=== PATIENT | male | born 1940 | race Caucasian/White ===

== ENCOUNTER 2021-09-04 01:46 | Inpatient (IN) | payer OTHER, SELFPAY ==
[2021-09-04] VITALS (19 sets, daily range): BP systolic 115–174; BP diastolic 53–82; PULSE 60–95; RESP 13–19; TEMP 36.1–36.8; O2SAT 94–100; BMI 27.6
--- NOTE | 2021-09-04 | ECHO_ITS ---
Patient Info Name: Rudy Herrera Age: 81 years : 1940 Gender: Male Ht: 73 in Wt: 209 lbs BSA: 2.22 m2 HR: 67 bpm BP: 133 / 60 mmHg Technical Quality: Fair Exam Date: 09/04/2021 1:01 PM Exam Location: [facility] Pulmonary Exam Room: [facility] Patient Status: Outpatient Admit Date: 09/04/2021 Staff Ordering Physician: Amos Mascorro [employer] Chief Inspector: Sandee Escalera RDCS Attending Provider: Mark Reardon MD Referring Physician: Ludwin SINGH; Exam Type: CA echo doppler color flow Study Info Indications - fluid volume status Complete two-dimensional, color flow and Doppler transthoracic echocardiogram is performed. Summary 1. Complete two-dimensional, color flow and Doppler transthoracic echocardiogram is performed. 2. Left ventricular chamber dimension is normal. 3. Left ventricular systolic function is normal, estimated at 65-70%. 4. There is mildly increased left ventricular wall thickness. 5. The left ventricular diastolic function is grade I diastolic dysfunction. 6. Right ventricular chamber dimension is normal. 7. Right ventricular systolic function is normal. Left Ventricle Left ventricular chamber dimension is normal. Left ventricular systolic function is normal, estimated at 65-70%. There is mildly increased left ventricular wall thickness. Left ventricular septal wall motion is normal. The left ventricular diastolic function is grade I diastolic dysfunction. Right Ventricle Right ventricular chamber dimension is normal. Right ventricular systolic function is normal. Left Atria Left atrial chamber dimension is normal. Right Atria Right atrial chamber dimension is normal. Aortic Valve The aortic valve is trileaflet. There is no aortic valve sclerosis. There is no aortic valve stenosis. There is no aortic valve regurgitation. Pulmonic Valve The pulmonic valve is normal. There is no pulmonic valve stenosis. There is no pulmonic regurgitation. Mitral Valve The mitral valve has normal leaflets. There is no mitral valve stenosis. There is no mitral valve regurgitation. Tricuspid Valve The tricuspid valve leaflets are normal. There is no significant tricuspid valve stenosis. There is no tricuspid valve regurgitation. Pericardium/Pleural The pericardium appears normal. There is no pericardial effusion. Aorta The aortic root size at the sinus of Valsalva is normal. The prox ascending aorta size is normal. Left Ventricular Outflow Tract Name Value Normal LVOT 2D LVOT Diameter 2.0 cm LVOT Doppler LVOT Peak Gradient 5 mmHg LVOT Mean Gradient 2 mmHg LVOT VTI 22 cm LVOT VTI/AV VTI Ratio 0.7 LVOT Stroke Volume 70 ml LVOT CO 13.8 l/min LVOT CI 6.2 l/min/m2 Pulmonic Valve Name Value Normal
--- NOTE | ~2021-09-04 | CT_ITS ---
EXAMINATION: CT abdomen pelvis w con DATE: 09/04/2021 04:04 INDICATION: Gastrointestinal bleeding TECHNIQUE: Computed tomography (CT) of the abdomen and pelvis was performed with 100 CC Omnipaque 300 intravenous contrast. Automated exposure control and iterative reconstruction technique were employe d. Exam dose: 1601.81 mGy-cm total exam DLP. COMPARISON: 09/18/2016 obstructive series FINDINGS: The lung bases are clear of infiltrate or consolidation. Heart size is normal. No pericardi al or pleural effusion. Very small lateral segment left hepatic cyst. Several millimeter lower right hepatic cyst. The gallbl adder appears unremarkable. Possible 2.4 mm distal common bile duct calculus versus solitary pancreat ic head calcification. No bile duct or pancreatic duct dilatation. Normal morphology of the adrenal glands. 1.5 cm upper pole right renal cyst. No urinary tract calculus or hydroureteronephrosis. Normal caliber of the abdominal aorta. No intraperitoneal or retroperitoneal or pelvic mass lesion or adenopathy or ascites is noted. The pelvic structures are not optimally evaluated due to extensive streak artifact from bilateral hip replacements. Normal appendix. There is prominent rectosigmoid wall thickening with mild surrounding soft tissue infiltration of the fat, consistent with proctocolitis. No bowel obstruction or intraperitoneal free air. Mild diffuse thickening of the urinary bladder wall. Prominent bladder distention. The prostate is ob scured by the streak artifact from a hip replacements. Bilateral fat-containing inguinal hernias. Very small fat-containing umbilical hernia. Osteopenia. Degenerative changes of the spine including severe degenerative disc disease at L1-2 and L2-3. IMPRESSION: Proximal colitis Possible distal common bile duct 2.4 mm calculus Small hepatic cysts 1.5 cm right renal cyst Bladder wall thickening and bladder distention may indicate bladder outlet obstruction, possibly due to prostate enlargement. The prostate is obscured by streak artifact from bilateral hip replacements. Reviewed, dictated and finalized at [facility]. Reviewed, dictated and finalized at [facility]. IMPRESSION: Proximal colitis Possible distal common bile duct 2.4 mm calculus Small hepatic cysts 1.5 cm right renal cyst Bladder wall thickening and bladder distention may indicate bladder outlet obst ruction, possibly due to prostate enlargement. The prostate is obscured by stre ak artifact from bilateral hip replacements.
--- NOTE | ~2021-09-04 | XR_ITS ---
CORRECTED REPORT WRONG ORDER, TITLE CHANGE 09/07/21 PK EXAMINATION: XR OR CYSTOGRAM DATE: 09/04/2021 20:10 CDT INDICATION: CATHETER PLACEMENT W/ CONTRAST . TECHNIQUE: 2 fluoroscopic images of the pelvis were obtained during catheter placement performed by the surgeon. I was not present in the operating room. Fluoroscopy exposure time was 17.9 seconds. Cumulative dose was 11.36 mGy. COMPARISON: CT abdomen and pelvis, same date FINDINGS: Contrast present within the urinary bladder. There is guidewire access to the urinary bladder with several loops of coiled wire, followed by a likely postprocedure image with a Perez catheter balloon inflated in the bladder lumen, in good position. IMPRESSION: Fluoroscopic documentation of catheter placement. Please refer to the operative note for complete procedural details. . Reviewed, dictated and finalized at [facility]
--- NOTE | ~2021-09-04 | CT_ITS ---
EXAMINATION: CT brain wo con DATE: 09/08/2021 11:02 INDICATION: Hyponatremia TECHNIQUE: Computed tomography (CT) of the head was performed without intravenous contrast. The mA wa s adjusted according to patient size. Iterative reconstruction technique was employed. Exam dose: 90 8.00 mGy-cm total exam DLP. COMPARISON: 09/14/2016 CT brain FINDINGS: 2 sets of examinations are provided but there is unfortunately significant patient motion l imiting both sets. Chronic left insular and posterior left temporoparietal encephalomalacia consistent with infarcts, le ft middle cerebral territory. No intracranial mass lesion or hemorrhage, midline shift or mass effect or subdural or epidural hemat radha is evident. Moderately prominent cerebral and cerebellar volume loss. No carotid siphon internal carotid artery calcifications nonspecific diminished attenuation cerebral white matter, likely due to chronic small vessel ischemic changes No fracture or bone destruction of the cranial vault is evident. 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 Reviewed, dictated and finalized at [facility]. 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
--- NOTE | ~2021-09-04 | US_ITS ---
EXAMINATION:US venous doppler LE BI INDICATION:Bilateral leg swelling TECHNIQUE: Multiple grayscale, color flow and Doppler images of the right and left lower extremity de ep venous systems were obtained and reviewed. COMPARISON:Ultrasound dated 04/17/2008 FINDINGS: The common femoral, superficial femoral and popliteal veins demonstrate normal respiratory variation, augmentation and compressibility. Color flow is also seen within the posterior tibial, pe roneal, greater saphenous and profunda veins. IMPRESSION: 1: No lower extremity deep venous thrombosis. Reviewed, dictated and finalized at [facility].
--- NOTE | ~2021-09-04 | XR_ITS ---
XR chest 1V portable DATE: 09/04/2021 08:36 INDICATION: Hypoxia TECHNIQUE: Portable AP chest on 09/04/2021 at 0834 hours COMPARISON: 09/19/2016 portable AP chest FINDINGS: Chronic mild elevation of right diaphragm. Mild infiltrate or atelectasis at the lung bases . Heart size is likely within normal range considering magnification associated with AP projection. No pleural effusion, pulmonary vascular congestion or pneumothorax is detected. Osteopenia. IMPRESSION: Chronic mild elevation right diaphragm Mild infiltrate or atelectasis at the lung bases Osteopenia Reviewed, dictated and finalized at [facility].
--- NOTE | ~2021-09-04 | XR_ITS ---
EXAMINATION: XR abdomen NG/feed tube insert DATE: 09/07/2021 07:09 INDICATION: Nasogastric tube verification TECHNIQUE: A supine view of the abdomen and lower chest was obtained for evaluation of feeding tube placement. COMPARISON: Chest radiograph dated 09/04/2021 FINDINGS: Nasogastric tube tip in proximal side port in the body of the stomach. Moderate amount of gas scatter ed throughout nondilated loops of bowel throughout the visualized mid to upper abdomen. No frankly di lated bowel to suggest obstruction. Elevation of right hemidiaphragm. Visualized portions of the lung s remain clear. Heart size is normal. IMPRESSION: 1. Nasogastric tube in the stomach. Reviewed, dictated and finalized at [facility].
[2021-09-04] MEDS: ONDANSETRON INJ 4 MG/2 ML VIAL IV PUSH (02:05)
[2021-09-04] MEDS: PANTOPRAZOLE SODIUM IV 40 MG VIAL 80 MG IV PUSH (02:05)
[2021-09-04 02:08] LABS: Basophils Percent Auto 0.2 % (0.2-1.2); Eosinophils Absolute Auto 0.4 K/mm3 (0-0.3); Eosinophils Percent Auto 3.4 % (0-4.4); Hematocrit 38.2 % (42.0-52.0); Hemoglobin 12.7 g/dL (14.0-18.0); Immature Granulocyte Absolute 0.04 K/mm3 (0.00-0.031); Immature Granulocyte Percent A 0.3 % (0-0.5); Lymphocytes Absolute Auto 1.38 K/mm3 (0.9-3.2); Lymphocytes Percent Auto 11.2 % (18.3-44.2); Mean Corpuscular HGB Conc 33.2 g/dl (32-36); Mean Corpuscular Hemoglobin 28.8 pg (26-34); Mean Corpuscular Volume 86.6 fl (80-100); Mean Platelet Volume 8.1 fl (7.4-10.4); Monocytes Absolute Auto 1.1 K/mm3 (0.1-0.6); Monocytes Percent Auto 8.7 % (2.6-8.5); Neutrophils Absolute Auto 9.4 K/mm3 (1.3-6.7); Neutrophils Percent Auto 76.2 % (45.5-73.1); Platelet Count Result 207 k/mm3 (150-375); Red Blood Count 4.41 M/mm3 (4.6-6.20); Red Cell Distribution Width 13.1 % (11.5-14.5); White Blood Count 12.4 K/mm3 (4.5-10.0)
[2021-09-04 02:18] LABS: INR 3.6; Prothrombin Time 35.1 Seconds (11.1-14.7)
[2021-09-04 02:19] LABS: Partial Thromboplastin Time 60.3 SECONDS (22.3-36.8)
--- NOTE | 2021-09-04 02:24 | ED.GIBLEED ---
HPI - GI Bleed General Chief complaint: GI Bleed Stated complaint: GI BLEED Time Seen by Provider: 09/04/21 01:50 History of Present Illness HPI Narrative: 81-year-old male presents here after skilled nursing noticed blood in his stool around 5 PM, they said that they were also blood clots. Patient denies any symptoms whatsoever, no abdominal pain, nausea or vomiting; he has however dementia patient who is only alert and oriented x1 at baseline. He is on Coumadin for blood clots. Related Data Allergies Allergy/AdvReac Type Severity Reaction Status Date / Time PIPERACILLIN SODIUM Allergy Mild RASH Uncoded 09/04/21 01:57 TAZOBACTAM SODIUM Allergy Mild RASH Uncoded 09/04/21 01:57 Review of Systems Review of Systems: CONST: No fever. HEENT: No sore throat C/V: No chest pain RESP: No cough GI: No abdominal pain : No dysuria. M/S: No joint pain. SKIN: No rash. NEURO: [No headache or focal numbness or weakness] PSYCH: [No depression] [facility] Past Medical History Medical History (Updated 09/04/21 @ 07:03 by Cecile Mccurdy MD) COPD (chronic obstructive pulmonary disease) Embolism Social History Social History Alcohol intake: never Exam Narrative: EXAMINATION OF ORGAN SYSTEMS/BODY AREAS: Constitutional: Vital signs per nursing GENERAL:[No acute distress, non-toxic appearing.] HEAD: Normal with no signs of head trauma. EYES: EOMI, conjunctiva normal ENT: Hearing grossly intact LUNGS: Nonlabored breathing. HEART: [Regular rate and rhythm] ABD: [Soft], [nontender to palpation] RECTAL: Bright red bloody mucus from rectum, no tenderness EXT: Normal range of motion SKIN: No pallor NEURO: [Alert and oriented x1, at baseline. No gross focal sensory or strength deficits.] PSYCH: Normal affect Course Vital Signs Vital signs: Vital Signs Temperature 97.6 F 09/04/21 01:46 Pulse Rate 73 09/04/21 01:46 Respiratory Rate 18 09/04/21 01:46 Blood Pressure 140/76 09/04/21 01:46 Pulse Oximetry 100 09/04/21 01:46 Oxygen Delivery Nasal Cannula 09/04/21 01:46 Oxygen Flow Rate 2 09/04/21 01:46 Temperature 97.6 F 09/04/21 01:46 Pulse Rate 66 09/04/21 05:50 Respiratory Rate 14 09/04/21 05:50 Blood Pressure 115/53 L 09/04/21 05:50 Pulse Oximetry 97 09/04/21 04:50 Oxygen Delivery Nasal Cannula 09/04/21 01:46 Oxygen Flow Rate 2 09/04/21 01:46 MDM - GI Bleed MDM Narrative Medical decision making narrative: 81-year-old male presenting with bright red blood per rectum, vital stable, exam does show bright red mucous from rectum without any obvious external hemorrhoids, no rectal tenderness. Concern is for lower GI bleeding possibly internal hemorrhoids versus nuclear bleeding, less likely upper GI bleed without any abdominal pain and stool is bright red and not melanotic. Labs and coags obtained, patient's INR is elevated at 3.6 when therapeutic should be 2-3, otherwise hemoglobin is stable, he is not having large amount of bloody stool. Notable for possible cystitis, UA will be ordered; and possible proctocolitis, he will be started on antibiotics. I do feel he should be admitted for further observation and possible blood transfusion as noted, we did attempt to reach family however no one picked up. I did discuss the case with the hospitalist Dr. Reardon who is amenable to admission. Lab Data Result diagrams: 09/04/21 01:59 09/04/21 02:52 Labs: Lab Results 09/04/21 09/04/21 09/04/21 Range/Units 01:58 01:59 01:59 WBC 12.4 H (4.5-10.0) K/mm3 RBC 4.41 L (4.6-6.20) M/mm3 Hgb 12.7 L (14.0-18.0) g/dL Hct 38.2 L (42.0-52.0) % MCV 86.6 (80-100) fl MCH 28.8 (26-34) pg MCHC 33.2 (32-36) g/dl RDW 13.1 (11.5-14.5) % Plt Count 207 (150-375) k/mm3 MPV 8.1 (7.4-10.4) fl Immature Gran % (Auto) 0.3 (0-0.5) % Neut % (Auto) 76.2 H (45.5-73.1) % Lymph % (Auto) 11.2 L (18.3-44.2) % [place] % (Auto)
[2021-09-04 03:37] LABS: Alanine Aminotransferase 24 U/L (6-50); Albumin Level 3.4 g/dL (3.5-5.1); Alkaline Phosphatase 72 U/L (38-126); Anion Gap 5 mmol/L (8-16); Aspartate Amino Transferase 28 U/L (17-59); Bilirubin,Total 0.4 mg/dL (0.2-1.3); Blood Urea Nitrogen 8 mg/dL (9-20); Calcium 7.7 mg/dL (8.4-10.2); Carbon Dioxide 29 mmol/L (22-30); Chloride 90 mmol/L (98-107); Estimated CRCL calculation 137 ml/min; Estimated Glomerular Filt Rate > 60; Glucose 127 mg/dL (65-110); Magnesium 1.8 mg/dL (1.6-2.3); Potassium 4.2 mmol/L (3.4-5.0); Sodium 124 mmol/L (137-145)
--- NOTE | 2021-09-04 07:23 | PM.IMHP ---
H&P: HPI History of Present Illness Date/Time: 09/04/21 07:23 Chief Complaint: Melena x 1 with clots Narrative: Patient is a 81 year old male with a past medical history of COPD, GERD, A. FIb, schizoaffective disorder, DVTs, BPH, Alzheimer, OCD, Seizures, anemia who presented from [facility] for melena with clots. Patient is a very poor historian and hearing difficulties. He keeps telling me that he wants a Diet Dr. Pickens, they are $0.75, and there is money in the top drawer. Most of the HPI is taken from electronic records. It seems that he had a large BM that was bloody and had clots in it. It seems that the patient is on warfarin for what seems to be a. fib and DVT/PEs. He denies any pain at this time. H/H is stable at 12.7/38.2. INR is slightly elevated at 3.6. He does not know where he is, and he was not able to be reoriented. He did not seem to have any abdominal pain with palpation, and his abdomen was soft and round. Lung sounds were clear. However, he does seem to wear oxygen at home, and was not in his nose at time of exam. He does snore and probably has KARI. He denies any cough at this time. It does appear that his INR was in range on 08/29/21 at 2.24. Lactic acid is also elevated and sodium is low at 124. Unsure of his baseline mental status at time. Complete review of systems was not obtainable due to patient's mental status. Patient is being admitted to the hospitalist service under inpatient status Review of Systems Review of Systems: All systems reviewed & are unremarkable except as noted in HPI and below ROS unobtainable: Yes unobtainable due to medical condition PMFSH Past Medical History Medical History (Updated 09/04/21 @ 14:07 by Titi Kelley MD) Alzheimer disease Anemia Anxiety Atrial fibrillation BPH (benign prostatic hyperplasia) Colitis COPD (chronic obstructive pulmonary disease) COVID-19 DVT (deep venous thrombosis) Embolism GERD (gastroesophageal reflux disease) HTN (hypertension) Major depressive disorder Osteoporosis Pulmonary embolism PVD (peripheral vascular disease) Schizo affective schizophrenia Seizure Family History Family History Other Unknown family medical history Social History Social History (Updated 09/04/21 @ 07:47 by ANDREINA Mathis) Social History: Patient is from [facility]. Stephie Cortez appears to be his POA who is a family member. According to the paperwork from the senior care patient is a DNR. Smoking status: Never smoker Alcohol intake: never Substance use: never Substance use type: does not use Living arrangements: senior care Additional living arrangements comments: [facility] Occupation/Education: retired Gender identity (if verbalized by the patient): Male Sexual Orientation (if Verbalized by the Patient): Straight or Heterosexual Spiritual care concerns: No Agree to blood products: Yes Meds Home Medications and Allergies Home Medications Medication Instructions Recorded Confirmed Type acetaminophen 500 mg tablet 500 mg PO Q6H PRN Fever Or Pain 09/04/21 09/04/21 History aspirin 81 mg tablet,delayed 81 mg PO DAILY 09/04/21 09/04/21 History release betamethasone dipropionate 0.05 % 1 applic topical DAILY 09/04/21 09/04/21 History topical cream cholecalciferol (vitamin D3) 1,250 1,250 mcg PO WEEKLY 09/04/21 09/04/21 History mcg (50,000 unit) capsule digoxin 250 mcg (0.25 mg) tablet 250 mcg PO DAILY 09/04/21 09/04/21 History diphenhydramine HCl 25 mg capsule 25 mg PO Q6H PRN Itching 09/04/21 09/04/21 History (Benadryl) lisinopril 20 mg tablet 20 mg PO DAILY 09/04/21 09/04/21 History melatonin 5 mg tablet 5 mg PO HS PRN Sleep 09/04/21 09/04/21 History metoprolol tartrate 25 mg tablet 12.5 mg PO BID 09/04/21 09/04/21 History multivitamin with minerals 1 tablet PO DAILY
[2021-09-04] MEDS: metroNIDAZOLE 500 MG/ISO 100ML 500 MG/100 ML BAG 100 MG IVPB ×3 (07:25→22:15)
[2021-09-04 07:45] LABS: Hematocrit 38.7 % (42.0-52.0); Hemoglobin 12.7 g/dL (14.0-18.0)
[2021-09-04 07:46] LABS: SARS-CoV-2 RNA PCR Negative
--- NOTE | 2021-09-04 08:15 | ECG_ITS ---
Measurements Intervals [place] Rate: 67 P: 50 [place]: 145 QRS: -51 QRSD: 114 T: 76 QT: 375 QTc: 397 Interpretive Statements SINUS RHYTHM LEFT ANTERIOR FASCICULAR BLOCK BASELINE ARTIFACT- V4-V6 ABNORMAL ECG Electronically Signed On 09-04-2021 18:22:06 CDT by Rome Guaman D.O.
[2021-09-04] MEDS: SODIUM CHLORIDE 0.9% IV 1,000 ML 100 ML IV CONT (08:24)
[2021-09-04 10:11] LABS: Bacteria Urine 4+ /hpf; RBC Urine 51-75 /hpf (0-2); Squamous Epithelial Cell Urine Few /hpf (Few); WBC Clumps Urine Present /HPF; WBC Urine >75 /hpf
[2021-09-04 10:13] LABS: Appearance Urine Cloudy (Clear); Bilirubin Urine Negative (Negative); Color Urine Yellow (Yellow); Glucose Urine UA Negative (Negative); Ketones Urine Negative (Negative); Leukocyte Esterase Ur 2+ LEU/UL (Negative); Nitrate Urine Negative (Negative); Protein Urine Negative (Negative); Urobilinogen Urine 0.2 mg/dL (<2.0)
[2021-09-04 10:14] LABS: Add Urine Microscopic? YES; Blood Urine Trace-Intact (Negative)
[2021-09-04 10:29] LABS: Lactate Dehydrogenase 324 U/L (313-618)
[2021-09-04 10:37] LABS: Transferrin 185 mg/dL (206-381)
[2021-09-04] MEDS: CIPROFLOXACIN 400 MG/D5W 200ML 200 ML 200 MG IVPB ×2 (10:38→20:54)
[2021-09-04 11:00] LABS: Iron 124 ug/dL (49-181)
[2021-09-04 11:07] LABS: Percent Iron Saturation 45 % (20-50)
--- NOTE | 2021-09-04 11:35 | ADMGEN ---
This patient, Rudy Herrera, was admitted to [facility] Surg Room 306-01. Patient/family oriented to hospital policies and general routines including ID bracelet, bed and alarms, visiting hours, pain management, procedures, bathroom and other care routines, personal items, smoking policy, room service/diet, and visiting hours. Information on how to activate the Rapid Response Team has been discussed. Patient/Family are encouraged to report perceived risks to care and to ask questions if they do not understand what they are told or what they should do.
--- NOTE | 2021-09-04 14:02 | WPDGICN ---
Assessment and Plan Assessment and plan (1) GI bleed: Code(s): K92.2 - Gastrointestinal hemorrhage, unspecified Status: Acute Assessment and Plan: will assess with egd and colonoscopy also could have been due to elevated INR (I talked to hospital and will reverse inr so he can have procedures) monitor for more signs of bleeding CT scan also report possible colitis (will assess tomorow) (2) Lactic acidosis: Code(s): E87.2 - Acidosis Status: Acute Assessment and Plan: monitor no abdominal pain (3) Hyponatremia: Code(s): E87.1 - Hypo-osmolality and hyponatremia Status: Acute Assessment and Plan: monitor (4) Chronic anticoagulation: Code(s): Z79.01 - jail (current) use of anticoagulants Status: Acute Assessment and Plan: coumadin on hold and inr will be treated (5) Atrial fibrillation: Code(s): I48.91 - Unspecified atrial fibrillation Status: Acute (6) Alzheimer disease: Code(s): G30.9 - Alzheimer's disease, unspecified; F02.80 - Dementia in other diseases classified elsewhere without behavioral disturbance Status: Acute (7) Anemia: Code(s): D64.9 - Anemia, unspecified Status: Acute Assessment and Plan: hb at 12, monitor (8) Colitis: Code(s): K52.9 - Noninfective gastroenteritis and colitis, unspecified Status: Acute GI Consult Note Consult date/time: 09/04/21 14:02 Reason for consult: rectal bleeding HPI: Rudy Herrera is a 81 year old male with past medical history of COPD, GERD, A. FIb on coumadin, schizoaffective disorder, DVTs, BPH, Alzheimer, Seizures who presented from [facility] with new onset of rectal bleeding. History is obtained from records because his dementia. Apparently staff noted dark stools with clots but unclear to me. Blood work showed H/H at 12.7/38.2.? INR 3.6 (on coumadin).?Lactic acid is also elevated and sodium is low at 124. No more report of bleeding here and he is lying in bed comfortable. I did not find information about previous scopes. CT scan reviewed and showed colitis Review of Systems Review of Systems: All systems reviewed & are unremarkable except as noted in HPI and below ROS unobtainable: Yes unobtainable due to medical condition COUNT INCLUDES THE [facility] Past Medical History Medical History (Updated 09/04/21 @ 14:07 by Titi Kelley MD) Alzheimer disease Anemia Anxiety Atrial fibrillation BPH (benign prostatic hyperplasia) Colitis COPD (chronic obstructive pulmonary disease) COVID-19 DVT (deep venous thrombosis) Embolism GERD (gastroesophageal reflux disease) HTN (hypertension) Major depressive disorder Osteoporosis Pulmonary embolism PVD (peripheral vascular disease) Schizo affective schizophrenia Seizure Family History Family History Other Unknown family medical history Social History Social History (Updated 09/04/21 @ 07:47 by ANDREINA Mathis) Social History: Patient is from [facility]. Stephie Cortez appears to be his POA who is a family member. According to the paperwork from the long term patient is a DNR. Smoking status: Never smoker Alcohol intake: never Substance use: never Substance use type: does not use Living arrangements: long term Additional living arrangements comments: [facility] Occupation/Education: retired Gender identity (if verbalized by the patient): Male Sexual Orientation (if Verbalized by the Patient): Straight or Heterosexual Spiritual care concerns: No Agree to blood products: Yes Meds Home Medications and Allergies Home Medications Medication Instructions Recorded Confirmed Type acetaminophen 500 mg tablet 500 mg PO Q6H PRN Fever Or Pain 09/04/21 09/04/21 History aspirin 81 mg tablet,delayed 81 mg PO DAILY 09/04/21 09/04/21 History release
[2021-09-04] MEDS: DIGOXIN 250 MCG TABLET PO (15:07)
[2021-09-04] MEDS: lisinopriL 20 MG TABLET PO (15:08)
[2021-09-04] MEDS: METOPROLOL TARTRATE 25 MG TABLET PO ×2 (15:09→22:13)
[2021-09-04] MEDS: PRIMIDONE 50 MG TABLET 200 MG PO ×2 (15:09→17:45)
[2021-09-04] MEDS: THERAPEUTIC MULTIVITAMINS/MINERALS TAB (*BKC) 1 TABLET PO (15:09)
[2021-09-04 15:11] LABS: Hematocrit 37.5 % (42.0-52.0); Hemoglobin 12.3 g/dL (14.0-18.0)
[2021-09-04] MEDS: PHYTONADIONE ADULT INJ 10 MG in DEXTROSE 5% IN WATER 50 ML 100 MG IVPB (15:11)
[2021-09-04 15:19] LABS: Sodium 127 mmol/L (137-145)
[2021-09-04] MEDS: BISACODYL 5 MG TABLET EC 20 MG PO (17:45)
[2021-09-04] MEDS: diphenhydrAMINE HCl CAP 25 MG CAPSULE PO (17:47)
--- NOTE | 2021-09-04 19:09 | WPDURCON ---
Assessment and Plan Assessment and plan (1) Urinary retention: Code(s): R33.9 - Retention of urine, unspecified Status: Acute Plan 81M anticoagulated with coumadin admitted for work up of hematochezia and found to be in urinary retention, likely overflow incontinence. Additional Plan I attempted catheter placement at the bedside unsuccessfully. I then attempted to cystoscopically place a wire. The patient was prepped and draped in standard fashion. A flexible cystocope was advanced through the phimosis and the meatus encountered, the cystoscope was placed through the meatus and to the pendulous urethra, however the patient began bucking and screaming. A wire was advanced. I then attempted a 16F [place] over the wire however, the patient did not tolerate and I could not advance it. I then placed a 5F open-ended ureteral cahteter over the wire, clear yellow urine dripped slowly. I replaced the wire and attempted to dilate with the amplatz dilators, however the patient did not tolerate dilation over 8F. The patient is currently anticoagulated with warfarin with INR 3.6, new PT/INR is pending. I have discussed with Dr. Villalobos and we will order 2U FFP to reverse the warfarin immediately for the procedure. I have discussed by telephone with his sister and JENNIFER Denita and we will proceed to the operating room for cystoscopy, urethral dilation, complex catheter placement, possible dorsal slit/circumcision, possible suprapubic cystostomy. She agrees with the plan and requests that I call her with an update afterwards. Papi Curtis MD [facility] Consult Note HPI Date Seen: 09/04/21 Requesting Physician: Mark Reardon MD Primary Care Provider: Zuleika Serrano MD Consult Narrative Narrative: Rudy Herrera is a 81 year old male who I was asked to see by Hospital Medicine for urinary retention, dribbling incontinence in the setting of hyponatremia. The patient is on coumadin with an elevated INR. UA with LE and bacteria noted. Culture pending. Review of Systems Review of Systems: Unable to obtain ROS due to dementia, confusion and the patient is extremely hard of hearing. [facility] Past Medical History Medical History (Updated 09/04/21 @ 19:41 by Papi Curtis MD) Alzheimer disease Anemia Anxiety Atrial fibrillation BPH (benign prostatic hyperplasia) Colitis COPD (chronic obstructive pulmonary disease) COVID-19 DVT (deep venous thrombosis) Embolism GERD (gastroesophageal reflux disease) HTN (hypertension) Major depressive disorder Osteoporosis Pulmonary embolism PVD (peripheral vascular disease) Schizo affective schizophrenia Seizure Family History Family History Other Unknown family medical history Social History Social History (Updated 09/04/21 @ 07:47 by ANDREINA Mathis) Social History: Patient is from [facility]. Stephie Cortez appears to be his POA who is a family member. According to the paperwork from the detention patient is a DNR. Smoking status: Never smoker Alcohol intake: never Substance use: never Substance use type: does not use Living arrangements: detention Additional living arrangements comments: [facility] Occupation/Education: retired Gender identity (if verbalized by the patient): Male Sexual Orientation (if Verbalized by the Patient): Straight or Heterosexual Spiritual care concerns: No Agree to blood products: Yes Meds Home Medications and Allergies Home Medications Medication Instructions Recorded Confirmed Type acetaminophen 500 mg tablet 500 mg PO Q6H PRN Fever Or Pain 09/04/21 09/04/21 History aspirin 81 mg tablet,delayed 81 mg PO DAILY 09/04/21 09/04/21 History release betamethasone dipropionate 0.05 % 1 applic topical DAILY 09/04/21 09/04/21 History topical cream cholecalciferol (vitamin D3) 1,250 1,250 mcg
[2021-09-04 19:27] LABS: Hemoglobin 11.8 g/dL (14.0-18.0)
[2021-09-04 19:38] LABS: INR 1.8
[2021-09-04 19:40] LABS: Sodium 127 mmol/L (137-145)
--- NOTE | 2021-09-04 19:41 | WPDHPUPDATE1 ---
History and Physical Update Update Date/Time: 09/04/21 19:41 History and Physical has been reviewed, including an updated exam of the patient. There are NO changes in the patient's condition. Risks, benefits, and alternatives have been discussed and questions answered. Patient agrees to proceed with procedure.
--- NOTE | 2021-09-04 19:45 | PC.NURSE ---
Patient to OR per bed. Telephone consent obtained from Denita Cortez, patient guardian. Report to PRASAD Ortega.
[2021-09-04] MEDS: LACTATED RINGERS 1,000 ML 30 ML IV CONT (20:00)
--- NOTE | 2021-09-04 20:34 | P.PNAN_ITS ---
Anes - Eval Final PreProcedure Day of Procedure 09/04/21 20:34 Patient weight: overweight Neurological: confused Last oral intake: 4 hours ASA classification: IV Emergent: yes Anesthetic plan: proceed Anesthesia type and monitoring: general and standard monitoring Results Review: All pre-operative results and documents have been reviewed as part of the pre- operative evaluation. Informed Consent: The patient's anesthetic plan and its attendant risks and benefits were discussed with the patient/family/POA. Questions were solicited and answers provided to the satisfaction of the patient/family/POA.
--- NOTE | 2021-09-04 21:03 | SUR.PHASEI ---
2100 1 unit of ffp given in or, patient tolerated procedure well, vital signs stable
--- NOTE | 2021-09-04 21:07 | P.OP_ITS ---
Procedure Note - Detailed Date of Procedure 09/04/21 Pre-op Diagnosis Urethral Stricture Procedure Performed Cystoscopy with urethral dilation Cystogram Complex urethral catheter placement Surgeon Papi Curtis MD Indications 81M admitted for GI bleed found to be in urinary retention with inability to place catheters or dilate urethra at bedside. 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 Appropriate placement of 16F [place] with drainage of urine and contrast, confirmed with fluoroscopy. Description of Procedure Patient was placed on table and anesthesia induced. He was prepped and draped in standard fashion after transfer to dorsal lithotomy. A cystoscope was insinuated through his phimosis and into the meatus. The stricture was noted with the 5F entering through it. The cystoscope was removed, a wire advanced through the 5F and the 5F exchanged for a new one. The bladder was filled with contrast and a cystogram performed. It was consistent with the CT and very large. The wire was replaced and the Amplatz dilators used to dilate to 20F. This was very difficult. A 16F [place] was advanced over the wire into the bladder. 10cc of sterile water placed in the balloon. A cystogram was repeated to confirm placement, catheter drained well and irrigated easily. Estimated Blood Loss 5 Drains Yes (16F [place])
--- NOTE | 2021-09-04 21:31 | SUR.OPER ---
Patient came back to OR receiving FFP - anesthesia continued and documented vitals. Please see anesthesia notes.
--- NOTE | 2021-09-04 21:34 | SUR.PHASEI ---
2124 patient only received 1 of [address] ramirez, 2nd unit of ffp is being returned to blood bank so patient can be credited, was taken to blood bank by dr oliva.
[2021-09-04] MEDS: TAMSULOSIN HCL 0.4 MG CAPSULE PO (22:13)
[2021-09-04] MEDS: PANTOPRAZOLE SODIUM IV 40 MG VIAL IV PUSH (22:13)
[2021-09-04] MEDS: TOLNAFTATE 1% POWDER 45 GM BTL 1 APPLIC TOPICAL (22:14)
--- NOTE | 2021-09-04 22:48 | PC.NURSE ---
Patient transported back from OR via bed to room 306-1 @ 2200. Report taken from Praveen in PACU prior to transport. Patient resting comfortable in bed and all belonging and call light within reach
[2021-09-05] VITALS (13 sets, daily range): BP systolic 135–162; BP diastolic 51–78; PULSE 63–89; RESP 18–22; TEMP 36–36.7; O2SAT 97–100
[2021-09-05 00:42] LABS: Hematocrit 36.8 % (42.0-52.0)
[2021-09-05 00:47] LABS: Sodium 128 mmol/L (137-145)
[2021-09-05] MEDS: metroNIDAZOLE 500 MG/ISO 100ML 500 MG/100 ML BAG 100 MG IVPB ×3 (05:09→22:16)
--- NOTE | 2021-09-05 08:01 | WPDANESPN ---
Anes - Prog Note Post-Op Date/Time: 09/05/21 08:01 Cardiovascular status: normal Respiratory status: normal Airway patency: baseline Mental status: baseline Post-Op hydration status: normal Vital Signs: Last Vital Signs Temp 36.0 C L 09/05/21 04:12 Pulse 68 09/05/21 04:12 Resp 18 09/05/21 04:12 BP 135/51 L 09/05/21 04:12 Pulse Ox 100 09/05/21 04:12 O2 Del Method Nasal Cannula 09/04/21 21:40 O2 Flow Rate 2 09/04/21 21:40 Pain Score (VAS): 3 I/O: Intake & Output 09/04/21 09/05/21 09/05/21 23:59 07:59 15:59 Intake Total 1349 100 Output Total 200 800 Balance 1149 -700 Laboratory Tests 09/05/21 00:36 09/05/21 00:36 09/04/21 09/04/21 09/04/21 01:59 07:41 09:45 Hgb 12.7 L Hct 38.7 L PT INR Sodium Iron TIBC % Saturation Transferrin Lyndsay Transferrin Receptr Ferritin Lactate Dehydrogenase Vitamin B12 Folate TSH (Reflex) Urine Color Yellow Urine Appearance Cloudy H Urine pH 6.0 Ur Specific Nova 1.010 Urine Protein Negative Urine Glucose (UA) Negative Urine Ketones Negative Ur Blood (Man) Trace-intact Urine Nitrate Negative Urine Bilirubin Negative Urine Urobilinogen 0.2 Leukocyte Esterase Rfl 2+ H Urine RBC 51-75 H Urine WBC >75 H Urine WBC Clumps Present H Ur Squamous Epith Cells Few Urine Bacteria 4+ H Blood Type A Negative Antibody Screen Negative 09/04/21 09/04/21 09/04/21 10:02 10:13 10:13 Hgb Hct PT INR Sodium Iron 124 TIBC 277 % Saturation 45 Transferrin 185 L Lyndsay Transferrin Receptr Pending Ferritin 110.00 Lactate Dehydrogenase 324 Vitamin B12 272.0 Folate 7.0 TSH (Reflex) 2.160 Urine Color Urine Appearance Urine pH Ur Specific Nova Urine Protein Urine Glucose (UA) Urine Ketones Ur Blood (Man) Urine Nitrate Urine Bilirubin Urine Urobilinogen Leukocyte Esterase Rfl Urine RBC Urine WBC Urine WBC Clumps Ur Squamous Epith Cells Urine Bacteria Blood Type Antibody Screen 09/04/21 09/04/21 09/04/21 15:01 15:01 19:21 Hgb 12.3 L 11.8 L Hct 37.5 L 36.0 L PT INR Sodium 127 L Iron TIBC % Saturation Transferrin Lyndsay Transferrin Receptr Ferritin Lactate Dehydrogenase Vitamin B12 Folate TSH (Reflex) Urine Color Urine Appearance Urine pH Ur Specific Nova Urine Protein Urine Glucose (UA) Urine Ketones Ur Blood (Man) Urine Nitrate Urine Bilirubin Urine Urobilinogen Leukocyte Esterase Rfl Urine RBC Urine WBC Urine WBC Clumps Ur Squamous Epith Cells Urine Bacteria Blood Type Antibody Screen 09/04/21 09/04/21 09/05/21 19:21 19:21 00:36 Hgb 12.0 L Hct 36.8 L PT 20.0 H D INR 1.8 Sodium 127 L Iron TIBC % Saturation Transferrin Lyndsay Transferrin Receptr Ferritin Lactate Dehydrogenase Vitamin B12 Folate TSH (Reflex) Urine Color Urine Appearance Urine pH Ur Specific Nova Urine Protein Urine Glucose (UA) Urine Ketones Ur Blood (Man) Urine Nitrate Urine Bilirubin Urine Urobilinogen Leukocyte Esterase Rfl Urine RBC Urine WBC Urine WBC Clumps Ur Squamous Epith Cells Urine Bacteria Blood Type Antibody Screen 09/05/21 00:36 Hgb Hct PT INR Sodium 128 L Iron TIBC % Saturation Transferrin Lyndsay Transferrin Receptr Ferritin Lactate Dehydrogenase Vitamin B12 Folate TSH (Reflex) Urine Color Urine Appearance Urine pH Ur Specific Nova Urine Protein Urine Glucose (UA) Urine Ketones Ur Blood (Man) Urine Nitrate Urine Bilirubin Urine Urobilinogen Leukocyte Esterase Rfl Urine RBC Urine WBC Urine WBC Clumps Ur Squamous Epith Cells Urine Bacteria Blo
--- NOTE | 2021-09-05 08:05 | P.PNIM_ITS ---
Progress Note: A&P Assessment and Plan (1) GI bleed: Code(s): K92.2 - Gastrointestinal hemorrhage, unspecified Status: Acute Assessment and Plan: * Seems to be lower GI bleed * CT scan shows intraluminal hemorrhage * Trend H/H Q6H * H/H remains stable 12.2/36.8 * GI consulted thank you for your recommendation * EGD and colonoscopy scheduled for today * related to proctocolitis * Antibiotics continued cipro/flagyl (2) Hemorrhagic proctocolitis: Code(s): K52.9 - Noninfective gastroenteritis and colitis, unspecified Status: Acute Assessment and Plan: * Seen on the CT * Cipro/Flagyl on board * Trend H/H * GI consulted thank you for your help * WBC slightly elevated at * Hold warfarin * Give vitamin K one time * EGD/Colonoscopy scheduled for tomorrow (3) Anemia: Code(s): D64.9 - Anemia, unspecified Status: Acute Assessment and Plan: * Reported to have melena, with clots * Secondary to GI Bleed * H/H stable at this time * Trend H/H Q6H * Anemia labs iron 124, TIBC 277, % saturation 45, transferrin 185, ferritin 110, B12 272, folate 7 * Supplement is not indicated at this time * Probably related to acute blood loss, but could be multifactorial with the report of melena * Transfuse as indicated * Trend labs (4) Hyponatremia: Code(s): E87.1 - Hypo-osmolality and hyponatremia Status: Acute Assessment and Plan: * Na is 128 * IV fluids at 100ml/hr * Trend Na * Adjust therapy as indicated * Increase Na 4-6mmol/L per day * trend sodium Q6H * Consider consulting nephrology if no improvement (5) BPH (benign prostatic hyperplasia): Code(s): N40.0 - Benign prostatic hyperplasia without lower urinary tract symptoms Status: Acute Assessment and Plan: * Continue tamsulosin * Trend urine output * Bladder scan PRN * CT indicates urinary distention * urology consulted for difficult catheter placement * Cystoscopy performed with catheter placement yesterday (6) Alzheimer disease: Code(s): G30.9 - Alzheimer's disease, unspecified; F02.80 - Dementia in other diseases classified elsewhere without behavioral disturbance Status: Acute Assessment and Plan: * Currently patient is oriented to self * [facility] * Pleasantly confused * Could also be exacerbated by hyponatremia (7) Major depressive disorder: Code(s): F32.9 - Major depressive disorder, single episode, unspecified Status: Acute Assessment and Plan: * Stable * Continue home medications at this time (8) HTN (hypertension): Code(s): I10 - Essential (primary) hypertension Status: Acute Assessment and Plan: * Current BP is 135/51 * Continue home metoprolol 25mg PO BID, Lisinopril 20 PO daily * Trend blood pressure * adjust therapy as indicated (9) Atrial fibrillation: Code(s): I48.91 - Unspecified atrial fibrillation Status: Acute Assessment and Plan: * History of a. 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
--- NOTE | 2021-09-05 08:05 | PM.IMPN ---
Progress Note: A&P Assessment and Plan (1) GI bleed: Code(s): K92.2 - Gastrointestinal hemorrhage, unspecified Status: Acute Assessment and Plan: Seems to be lower GI bleed CT scan shows intraluminal hemorrhage Trend H/H Q6H H/H remains stable 12.2/36.8 GI consulted thank you for your recommendation EGD and colonoscopy scheduled for today related to proctocolitis Antibiotics continued cipro/flagyl (2) Hemorrhagic proctocolitis: Code(s): K52.9 - Noninfective gastroenteritis and colitis, unspecified Status: Acute Assessment and Plan: Seen on the CT Cipro/Flagyl on board Trend H/H GI consulted thank you for your help WBC slightly elevated at Hold warfarin Give vitamin K one time EGD/Colonoscopy scheduled for tomorrow (3) Anemia: Code(s): D64.9 - Anemia, unspecified Status: Acute Assessment and Plan: Reported to have melena, with clots Secondary to GI Bleed H/H stable at this time Trend H/H Q6H Anemia labs iron 124, TIBC 277, % saturation 45, transferrin 185, ferritin 110, B12 272, folate 7 Supplement is not indicated at this time Probably related to acute blood loss, but could be multifactorial with the report of melena Transfuse as indicated Trend labs (4) Hyponatremia: Code(s): E87.1 - Hypo-osmolality and hyponatremia Status: Acute Assessment and Plan: Na is 128 IV fluids at 100ml/hr Trend Na Adjust therapy as indicated Increase Na 4-6mmol/L per day trend sodium Q6H Consider consulting nephrology if no improvement (5) BPH (benign prostatic hyperplasia): Code(s): N40.0 - Benign prostatic hyperplasia without lower urinary tract symptoms Status: Acute Assessment and Plan: Continue tamsulosin Trend urine output Bladder scan PRN CT indicates urinary distention urology consulted for difficult catheter placement Cystoscopy performed with catheter placement yesterday (6) Alzheimer disease: Code(s): G30.9 - Alzheimer's disease, unspecified; F02.80 - Dementia in other diseases classified elsewhere without behavioral disturbance Status: Acute Assessment and Plan: Currently patient is oriented to self He thinks that he is at the [facility] Pleasantly confused Could also be exacerbated by hyponatremia (7) Major depressive disorder: Code(s): F32.9 - Major depressive disorder, single episode, unspecified Status: Acute Assessment and Plan: Stable Continue home medications at this time (8) HTN (hypertension): Code(s): I10 - Essential (primary) hypertension Status: Acute Assessment and Plan: Current BP is 135/51 Continue home metoprolol 25mg PO BID, Lisinopril 20 PO daily Trend blood pressure adjust therapy as indicated (9) Atrial fibrillation: Code(s): I48.91 - Unspecified atrial fibrillation Status: Acute Assessment and Plan: History of a. 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
--- NOTE | 2021-09-05 08:15 | WPDGIPROGNO ---
Progress Note: A&P Assessment and Plan (1) GI bleed: Code(s): K92.2 - Gastrointestinal hemorrhage, unspecified Status: Acute Assessment and Plan: difficult to get history from patient, can not tell if had melena wonder if blood in stool could be from proctocolitis (findings of CT scan) but now h/h stable at 12 and RN reports no more bleeding patient could not have bowel prep last night because he was still under anesthesia from recent urological procedure will do egd and colonoscopy on Monday, ok to have soft diet today (2) Anemia: Code(s): D64.9 - Anemia, unspecified Status: Acute Assessment and Plan: h/h stable (3) Urinary retention: Code(s): R33.9 - Retention of urine, unspecified Status: Acute Assessment and Plan: treated by urology (4) Alzheimer disease: Code(s): G30.9 - Alzheimer's disease, unspecified; F02.80 - Dementia in other diseases classified elsewhere without behavioral disturbance Status: Acute Assessment and Plan: he is confused (5) Hemorrhagic proctocolitis: Code(s): K52.9 - Noninfective gastroenteritis and colitis, unspecified Status: Acute (6) Chronic anticoagulation: Code(s): Z79.01 - intermediate (current) use of anticoagulants Status: Acute Subjective Date/time seen: 09/05/21 08:15 Interval history: he developed urinary retention and required urological intervention because 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 RN has not seen any more sign of GIB and hb stable at 12. Patient is awake but still confused. Review of Systems Review of Systems: ROS unobtainable: Yes unobtainable due to mental status Exam Const: General: cooperative, no acute distress, well developed, confusion and tired appearing Nutritional Appearance: well nourished and overweight Orientation/consciousness: oriented to person and confusion Limitations: altered mental status HENMT: Head: normal to inspection Ears: hearing grossly normal bilaterally General nose exam: Normal external nose present Teeth and gingiva: poor dentition Eyes: General: appearance normal, both eyes and all related structures Neck: Neck: normal visual inspection, full ROM, trachea midline and supple Chest: Chest palpation & inspection: normal inspection of the chest Resp: Effort & Inspection: normal respiratory effort and able to speak in complete sentences Auscultation: diminished lung sounds Cardio: Jugular venous distension: no JVD Rate: regular rate Heart sounds: S1 normal heart sound present and S2 normal heart sound present GI: Inspection: normal to inspection GI Palp: Yes Soft to palpation and No Tenderness to palpation present (GI) Auscultation: normal bowel sounds Urinary Catheter: Urinary Catheter: patent and draining Skin: General skin exam: normal color and no rashes or lesions noted Lesions: no lesions Neuro: General: moves all extremities, Normal light touch and pain sensation and confusion Cranial nerves: Yes Equal, round and reactive pupils present and Yes Bilaterally intact EOM present Cognition (Neuro): abnormal cognition Speech: normal speech Extrem: General: normal to inspection, full ROM and capillary refill normal Right lower extremity: edema Details: pitting and 3+ Left lower extremity: edema Details: pitting and 3+ Psych: Appearance: disheveled Speech and movement: Normal speech and movement present and Clear speech present Thought process: Other thought process findings present (happily confused ) Insight: Poor insight present (Psych) Judgement: Poor judgement present (Psych) Other: he is awake and alert but confused Objective Data Vital Signs Vital Signs: Vital Signs - 24 hr 09/04/21 08:27 09/04/21 11:17 09/04/21 15:07 Temperature Pulse Rate 66 66 60 Respiratory Rate 18 16 Blood Pressure 133/60 151/82 H
[2021-09-05] MEDS: CIPROFLOXACIN 400 MG/D5W 200ML 200 ML 200 MG IVPB ×2 (08:22→20:09)
[2021-09-05] MEDS: lisinopriL 20 MG TABLET PO (08:23)
[2021-09-05] MEDS: TOLNAFTATE 1% POWDER 45 GM BTL 1 APPLIC TOPICAL ×2 (08:23→20:17)
[2021-09-05] MEDS: DIGOXIN 250 MCG TABLET PO (08:23)
[2021-09-05] MEDS: SERTRALINE HCL 50 MG TABLET PO (08:23)
[2021-09-05] MEDS: THERAPEUTIC MULTIVITAMINS/MINERALS TAB (*BKC) 1 TABLET PO (08:23)
[2021-09-05] MEDS: PRIMIDONE 50 MG TABLET 200 MG PO ×3 (08:23→16:09)
[2021-09-05] MEDS: PANTOPRAZOLE SODIUM IV 40 MG VIAL IV PUSH ×2 (08:24→20:10)
[2021-09-05 08:35] LABS: Basophils Percent Auto 0.2 % (0.2-1.2); Eosinophils Absolute Auto 0.4 K/mm3 (0-0.3); Hematocrit 38.4 % (42.0-52.0); Hemoglobin 12.2 g/dL (14.0-18.0); Immature Granulocyte Absolute 0.05 K/mm3 (0.00-0.031); Immature Granulocyte Percent A 0.4 % (0-0.5); Lymphocytes Absolute Auto 0.91 K/mm3 (0.9-3.2); Lymphocytes Percent Auto 7.6 % (18.3-44.2); Mean Corpuscular HGB Conc 31.8 g/dl (32-36); Mean Corpuscular Hemoglobin 28.6 pg (26-34); Mean Corpuscular Volume 90.1 fl (80-100); Mean Platelet Volume 8.3 fl (7.4-10.4); Monocytes Absolute Auto 0.9 K/mm3 (0.1-0.6); Monocytes Percent Auto 7.2 % (2.6-8.5); Neutrophils Absolute Auto 9.8 K/mm3 (1.3-6.7); Neutrophils Percent Auto 81.6 % (45.5-73.1); Platelet Count Result 186 k/mm3 (150-375); Red Blood Count 4.26 M/mm3 (4.6-6.20); Red Cell Distribution Width 13.2 % (11.5-14.5)
[2021-09-05 08:44] LABS: Alanine Aminotransferase 27 U/L (6-50); Albumin Level 3.6 g/dL (3.5-5.1); Alkaline Phosphatase 92 U/L (38-126); Anion Gap 5 mmol/L (8-16); Aspartate Amino Transferase 24 U/L (17-59); Bilirubin,Total 0.4 mg/dL (0.2-1.3); Blood Urea Nitrogen 6 mg/dL (9-20); Carbon Dioxide 32 mmol/L (22-30); Chloride 91 mmol/L (98-107); Estimated CRCL calculation 137 ml/min; Estimated Glomerular Filt Rate > 60; Glucose 156 mg/dL (65-110); Potassium 4.1 mmol/L (3.4-5.0); Sodium 128 mmol/L (137-145)
--- NOTE | 2021-09-05 08:48 | PC.NURSE ---
bowel prep continued
[2021-09-05] MEDS: LACTATED RINGERS 1,000 ML 150 ML IV CONT ×2 (08:54→15:11)
[2021-09-05] MEDS: METOPROLOL TARTRATE 25 MG TABLET PO ×2 (08:55→20:10)
[2021-09-05 09:03] LABS: Phenytoin Dilantin 10 ug/mL (10-20)
--- NOTE | 2021-09-05 12:56 | PC.NURSE ---
per charge nurse Luz Diop, EGD/colonstomy scheduled for Monday per Md Bishop
--- NOTE | 2021-09-05 13:49 | WPDUROPN2 ---
Progress Note: A&P Assessment and Plan (1) Urinary retention: Code(s): R33.9 - Retention of urine, unspecified Status: Acute (2) Urethral stricture: Code(s): N35.919 - Unspecified urethral stricture, male, unspecified site Status: Acute Plan 1. Maintain catheter, the patient will likely require chronic indwelling catheter placement as I expect his urethral stricture to recur if catheter is removed. He will require monthly catheter exchanges. He is a very poor surgical candidate and unfortunately optimal treatment for dense strictures is urethroplasty vs. diversion. 2. Agree with antibiotics, taper to C&S. 3. Trend labs and I/Os. Subjective Subjective Date/Time Seen: 09/05/21 13:49 Review of Systems Review of Systems: NAEO, patient denies complaint today. Confused but denies pain. ROS unobtainable: Yes unobtainable due to mental status Exam Narrative: NAD,A&Ox3 RRR eWOB S/NT/ND 16F [place] catheter draining [place]kin urine. Objective Data Vital Signs Vital Signs: Vital Signs - 24 hr 09/04/21 15:07 09/04/21 15:09 09/04/21 20:00 Temperature 98.3 F Pulse Rate 60 60 72 Respiratory Rate 16 Blood Pressure 167/80 H Pulse Oximetry 100 Oxygen Delivery Nasal Cannula Oxygen Flow Rate 2 09/04/21 20:10 09/04/21 21:25 09/04/21 21:40 Temperature 98.3 F 97.5 F L Pulse Rate 72 95 74 Respiratory Rate 16 18 19 Blood Pressure 167/80 H 174/65 H 165/79 H Pulse Oximetry 100 94 100 Oxygen Delivery Nasal Cannula Nasal Cannula Oxygen Flow Rate 2 2 09/04/21 22:13 09/04/21 22:39 09/04/21 23:22 Temperature 96.9 F L 97.0 F L Pulse Rate 72 67 80 Respiratory Rate 16 18 Blood Pressure 150/67 H 131/59 L Pulse Oximetry 99 99 Oxygen Delivery Oxygen Flow Rate 09/05/21 00:00 09/05/21 04:00 09/05/21 04:12 Temperature 96.8 F L Pulse Rate 63 70 68 Respiratory Rate 18 Blood Pressure 135/51 L Pulse Oximetry 100 Oxygen Delivery Oxygen Flow Rate 09/05/21 08:00 09/05/21 08:23 09/05/21 08:00 Temperature Pulse Rate 75 75 75 Respiratory Rate 18 Blood Pressure Pulse Oximetry 100 Oxygen Delivery Nasal Cannula Oxygen Flow Rate 2 09/05/21 08:55 Temperature Pulse Rate 75 Respiratory Rate Blood Pressure Pulse Oximetry Oxygen Delivery Oxygen Flow Rate Intake/Output Intake/Output: Intake & Output 09/02/21 09/03/21 09/04/21 09/05/21 23:59 23:59 23:59 23:59 Intake Total 1849 780 Output Total 200 800 Balance 1649 -20 Meds/Results Medications: Active Medications Generic Name Dose Route Start Last Admin Trade Name Freq PRN Reason Stop Dose Admin Acetaminophen 500 mg 09/04/21 08:35 Acetaminophen 500 Mg Tablet PO Q6H PRN Fever Or Pain Digoxin 250 mcg 09/04/21 09:00 09/05/21 08:23 Digoxin 250 Mcg Tablet PO 250 mcg DAILY SIGRID Administration Diphenhydramine HCl 25 mg 09/04/21 08:35 09/04/21 17:47 Diphenhydramine Hcl Cap 25 Mg Capsule PO 25 mg TID PRN Administration Itching Ergocalciferol 50,000 unit 09/07/21 09:00 Ergocalciferol 50,000 Unit Capsule PO Tu@0900 SIGRID Fentanyl Citrate 25 mcg 09/04/21 20:30 Fentanyl Citrate Inj (*Crx) 100 Mcg/2 Ml Vial IV PUSH Q2M PRN Pain Ciprofloxacin/Dextrose 200 mls @ 200 mls/hr 09/04/21 21:00 09/05/21 09:22 Cipro 400 Mg/D5w 200 Ml IVPB Infused Q12H SIGRID Infusion Metronidazole 500 mg in 100 mls @ 100 mls/hr 09/04/21 14:00 09/05/21 13:16 Flagyl 500 Mg/Iso Soln 100 Ml IVPB 100 mls/hr Q8H SIGRID Administration Ceftriaxone Sodium/Dextrose 1 gm in 50 mls @ 100 mls/hr 09/04/21 16:00 09/04/21 17:03 Rocephin 1 Gm/D5w 50 Ml IVPB Infused Q24H SIGRID Infusion Lactated Ringer's 1,000 mls @ 30 mls/hr 09/04/21 20:30 09/04/21 22:11 Lr - Lactated Ringers Iv IV CONT Not Given .Q24H SIGRID Lactated Ringer's 1,000 mls @ 30 mls/hr 09/04/21 20:35 09/04/21 21:52 Lr - Lactated Ringers Iv IV
--- NOTE | 2021-09-05 16:15 | PC.NURSE ---
Petr from [facility] called facility updated.
--- NOTE | 2021-09-05 18:05 | PC.NURSE ---
all med passed by Claudia Breeding this shift.
--- NOTE | 2021-09-05 18:34 | PC.NURSE ---
porter clamped to recollect UA, NF was growning in prior sample
--- NOTE | 2021-09-05 18:50 | PC.NURSE ---
recollected UA resent to lab for analysis
[2021-09-05 18:54] LABS: Appearance Urine Clear (Clear); Bilirubin Urine Negative (Negative); Blood Urine 2+ (Negative); Color Urine Yellow (Yellow); Glucose Urine UA Trace mg/dL (Negative); Ketones Urine Negative (Negative); Leukocyte Esterase Ur 2+ LEU/UL (Negative); Nitrate Urine Negative (Negative); Protein Urine 1+ mg/dL (Negative); Specific Grav Ur 1.025 (1.001-1.035); Urobilinogen Urine 0.2 mg/dL (<2.0)
[2021-09-05 19:04] LABS: Bacteria Urine Trace /hpf; Mucus Urine Rare /lpf; RBC Urine 21-50 /hpf (0-2); Squamous Epithelial Cell Urine Rare /hpf (Few); WBC Urine 31-50 /hpf
[2021-09-05 19:05] LABS: Add Urine Microscopic? YES
[2021-09-05] MEDS: TAMSULOSIN HCL 0.4 MG CAPSULE PO (20:10)
[2021-09-06] VITALS (12 sets, daily range): BP systolic 120–147; BP diastolic 62–74; PULSE 67–88; RESP 16–20; TEMP 36.5–36.9; O2SAT 96–98
[2021-09-06] MEDS: metroNIDAZOLE 500 MG/ISO 100ML 500 MG/100 ML BAG 100 MG IVPB ×3 (05:15→21:19)
[2021-09-06 07:22] LABS: Basophils Percent Auto 0.2 % (0.2-1.2); Eosinophils Absolute Auto 0.4 K/mm3 (0-0.3); Eosinophils Percent Auto 4.5 % (0-4.4); Hematocrit 32.9 % (42.0-52.0); Immature Granulocyte Absolute 0.04 K/mm3 (0.00-0.031); Immature Granulocyte Percent A 0.4 % (0-0.5); Lymphocytes Percent Auto 10.2 % (18.3-44.2); Mean Corpuscular HGB Conc 33.4 g/dl (32-36); Mean Corpuscular Hemoglobin 29.1 pg (26-34); Mean Platelet Volume 8.3 fl (7.4-10.4); Monocytes Absolute Auto 0.9 K/mm3 (0.1-0.6); Monocytes Percent Auto 9.2 % (2.6-8.5); Neutrophils Absolute Auto 7.4 K/mm3 (1.3-6.7); Neutrophils Percent Auto 75.5 % (45.5-73.1); Platelet Count Result 173 k/mm3 (150-375); Red Blood Count 3.78 M/mm3 (4.6-6.20); Red Cell Distribution Width 12.8 % (11.5-14.5); White Blood Count 9.8 K/mm3 (4.5-10.0)
[2021-09-06 07:30] LABS: Alanine Aminotransferase 21 U/L (6-50); Albumin Level 3.3 g/dL (3.5-5.1); Alkaline Phosphatase 87 U/L (38-126); Anion Gap 0 mmol/L (8-16); Aspartate Amino Transferase 18 U/L (17-59); Bilirubin,Total 0.3 mg/dL (0.2-1.3); Blood Urea Nitrogen 3 mg/dL (9-20); Calcium 7.8 mg/dL (8.4-10.2); Carbon Dioxide 37 mmol/L (22-30); Chloride 88 mmol/L (98-107); Estimated CRCL calculation 137 ml/min; Estimated Glomerular Filt Rate > 60; Glucose 134 mg/dL (65-110); Potassium 3.7 mmol/L (3.4-5.0); Sodium 125 mmol/L (137-145)
[2021-09-06 07:51] LABS: INR 1.1
[2021-09-06 07:52] LABS: Partial Thromboplastin Time 29.3 SECONDS (22.3-36.8)
[2021-09-06 07:57] LABS: Magnesium 1.5 mg/dL (1.6-2.3)
[2021-09-06 08:06] LABS: NT Pro B Type Natriuretic Pept 227 pg/mL (5-100)
[2021-09-06] MEDS: PRIMIDONE 50 MG TABLET 200 MG PO ×3 (08:13→16:17)
[2021-09-06] MEDS: PANTOPRAZOLE SODIUM IV 40 MG VIAL IV PUSH ×2 (08:13→21:18)
[2021-09-06] MEDS: SERTRALINE HCL 25 MG TABLET PO (08:13)
[2021-09-06] MEDS: METOPROLOL TARTRATE 25 MG TABLET PO ×2 (08:14→21:18)
[2021-09-06] MEDS: THERAPEUTIC MULTIVITAMINS/MINERALS TAB (*BKC) 1 TABLET PO (08:14)
[2021-09-06] MEDS: SERTRALINE HCL 50 MG TABLET PO (08:14)
[2021-09-06] MEDS: TOLNAFTATE 1% POWDER 45 GM BTL 1 APPLIC TOPICAL ×2 (08:15→21:23)
--- NOTE | 2021-09-06 08:30 | P.PNIM_ITS ---
Progress Note: A&P Assessment and Plan (1) GI bleed: Code(s): K92.2 - Gastrointestinal hemorrhage, unspecified Status: Acute Assessment and Plan: * Seems to be lower GI bleed * CT scan shows intraluminal hemorrhage * H/H remains stable at 11.0/32.9 * GI consulted thank you for your recommendation * EGD and colonoscopy moved to Monday * related to proctocolitis * Antibiotics continued cipro/flagyl (2) Hemorrhagic proctocolitis: Code(s): K52.9 - Noninfective gastroenteritis and colitis, unspecified Status: Acute Assessment and Plan: * Seen on the CT * Cipro/Flagyl on board * Trend H/H * GI consulted thank you for your help * WBC slightly elevated at * Hold warfarin * Give vitamin K one time * EGD/Colonoscopy scheduled for Monday (3) Anemia: Code(s): D64.9 - Anemia, unspecified Status: Acute Assessment and Plan: * Reported to have melena, with clots * Secondary to GI Bleed * H/H stable at this time * Anemia labs iron 124, TIBC 277, % saturation 45, transferrin 185, ferritin 110, B12 272, folate 7 * Supplement is not indicated at this time * Probably related to acute blood loss, but could be multifactorial with the report of melena * Transfuse as indicated * Trend labs (4) Hyponatremia: Code(s): E87.1 - Hypo-osmolality and hyponatremia Status: Acute Assessment and Plan: * Na is 125, trending down * IV fluids at 100ml/hr * could potentially be from fluid overload * Will get urine studies * Trend Na * Adjust therapy as indicated * Increase Na 4-6mmol/L per day * Consider consulting nephrology if no improvement (5) BPH (benign prostatic hyperplasia): Code(s): N40.0 - Benign prostatic hyperplasia without lower urinary tract symptoms Status: Acute Assessment and Plan: * Continue tamsulosin * Trend urine output * CT indicates urinary distention * urology consulted for difficult catheter placement * Cystoscopy performed with catheter placement 09/04/21 (6) Alzheimer disease: Code(s): G30.9 - Alzheimer's disease, unspecified; F02.80 - Dementia in other diseases classified elsewhere without behavioral disturbance Status: Acute Assessment and Plan: * Currently patient is oriented to self * He thinks that he is at the group home * Pleasantly confused * Could also be exacerbated by hyponatremia (7) Major depressive disorder: Code(s): F32.9 - Major depressive disorder, single episode, unspecified Status: Acute Assessment and Plan: * Stable * Continue home medications at this time (8) HTN (hypertension): Code(s): I10 - Essential (primary) hypertension Status: Acute Assessment and Plan: * Current BP is 130/62 * Continue home metoprolol 25mg PO BID, Lisinopril 20 PO daily * Trend blood pressure * adjust therapy as indicated (9) Atrial fibrillation: Code(s): I48.91 - Unspecified atrial fibrillation Status: Acute Assessment and Plan: * History of a. fib * Obtain EKG * Continue home digoxin * Heart rate appears controlled * Trend heart rate * Telemonitor (10) Chronic anticoagulation: Code(s): Z79.01 - skilled nursing (current) use of anticoagulants
--- NOTE | 2021-09-06 08:30 | PM.IMPN ---
Progress Note: A&P Assessment and Plan (1) GI bleed: Code(s): K92.2 - Gastrointestinal hemorrhage, unspecified Status: Acute Assessment and Plan: Seems to be lower GI bleed CT scan shows intraluminal hemorrhage H/H remains stable at 11.0/32.9 GI consulted thank you for your recommendation EGD and colonoscopy moved to Monday related to proctocolitis Antibiotics continued cipro/flagyl (2) Hemorrhagic proctocolitis: Code(s): K52.9 - Noninfective gastroenteritis and colitis, unspecified Status: Acute Assessment and Plan: Seen on the CT Cipro/Flagyl on board Trend H/H GI consulted thank you for your help WBC slightly elevated at Hold warfarin Give vitamin K one time EGD/Colonoscopy scheduled for Monday (3) Anemia: Code(s): D64.9 - Anemia, unspecified Status: Acute Assessment and Plan: Reported to have melena, with clots Secondary to GI Bleed H/H stable at this time Anemia labs iron 124, TIBC 277, % saturation 45, transferrin 185, ferritin 110, B12 272, folate 7 Supplement is not indicated at this time Probably related to acute blood loss, but could be multifactorial with the report of melena Transfuse as indicated Trend labs (4) Hyponatremia: Code(s): E87.1 - Hypo-osmolality and hyponatremia Status: Acute Assessment and Plan: Na is 125, trending down IV fluids at 100ml/hr could potentially be from fluid overload Will get urine studies Trend Na Adjust therapy as indicated Increase Na 4-6mmol/L per day Consider consulting nephrology if no improvement (5) BPH (benign prostatic hyperplasia): Code(s): N40.0 - Benign prostatic hyperplasia without lower urinary tract symptoms Status: Acute Assessment and Plan: Continue tamsulosin Trend urine output CT indicates urinary distention urology consulted for difficult catheter placement Cystoscopy performed with catheter placement 09/04/21 (6) Alzheimer disease: Code(s): G30.9 - Alzheimer's disease, unspecified; F02.80 - Dementia in other diseases classified elsewhere without behavioral disturbance Status: Acute Assessment and Plan: Currently patient is oriented to self He thinks that he is at the intermediate Pleasantly confused Could also be exacerbated by hyponatremia (7) Major depressive disorder: Code(s): F32.9 - Major depressive disorder, single episode, unspecified Status: Acute Assessment and Plan: Stable Continue home medications at this time (8) HTN (hypertension): Code(s): I10 - Essential (primary) hypertension Status: Acute Assessment and Plan: Current BP is 130/62 Continue home metoprolol 25mg PO BID, Lisinopril 20 PO daily Trend blood pressure adjust therapy as indicated (9) Atrial fibrillation: Code(s): I48.91 - Unspecified atrial fibrillation Status: Acute Assessment and Plan: History of a. fib Obtain EKG Continue home digoxin Heart rate appears controlled Trend heart rate Telemonitor (10) Chronic anticoagulation: Code(s): Z79.01 - half-way (current) use of anticoagulants Status: Acute Assessment and Plan: Warfarin 5mg Daily for Afib and DVT/PEs Hold for now since he has a GI bleed INR down to 1.1 Restart when further recommended by GI Give vitamin k for Procedure tomorrow EGD/Colonoscopy Monday Trend PT/INR/PTT (11) Seizure: Code(s): R56.9 - Unspecified convulsions Status: Acute Assessment and Plan: Continue Phenytoin 6ml PO TID, and BID on Sundays Phenytoin 10, within the normal range Seems to be stable, and no reports of events recently (12) Urethral stricture: Code(s): N35.919 - Unspecified urethral stricture, male, unspecified site
--- NOTE | 2021-09-06 08:38 | WPDUROPN2 ---
Progress Note: A&P Assessment and Plan (1) Urinary retention: Code(s): R33.9 - Retention of urine, unspecified Status: Acute (2) Urethral stricture: Code(s): N35.919 - Unspecified urethral stricture, male, unspecified site Status: Acute Plan 1. Maintain catheter, the patient will likely require chronic indwelling catheter placement as I expect his urethral stricture to recur if catheter is removed. He will require monthly catheter exchanges. He is a very poor surgical candidate and unfortunately optimal treatment for dense strictures is urethroplasty vs. diversion. 2. Agree with antibiotics, taper to C&S, culture from OR is pending. 3. Trend labs and I/Os. Remaining care per primary service. Subjective Subjective Date/Time Seen: 09/06/21 08:38 NAEO, labs stable. Patient confused, oriented to self and date. Exam Narrative: NAD, appears comfortable, oriented to person and date. eWOB Warm, dry, perfused extremities S/NT/ND [place] catheter draining, Urine yellow urine (less elkin than yesterday). Objective Data Vital Signs Vital Signs: Vital Signs - 24 hr 09/05/21 08:55 09/05/21 12:00 09/05/21 15:17 Temperature 97.6 F Pulse Rate 75 89 84 Respiratory Rate 22 H Blood Pressure 149/78 H Pulse Oximetry 97 Oxygen Delivery 09/05/21 16:00 09/05/21 17:22 09/05/21 20:10 Temperature Pulse Rate 68 86 Respiratory Rate Blood Pressure Pulse Oximetry 97 Oxygen Delivery Room Air 09/05/21 21:58 09/05/21 20:00 09/06/21 00:00 Temperature 98.1 F Pulse Rate 81 80 78 Respiratory Rate 20 Blood Pressure 162/70 H Pulse Oximetry 99 Oxygen Delivery 09/06/21 04:00 09/06/21 05:54 09/06/21 08:00 Temperature 97.7 F Pulse Rate 78 75 75 Respiratory Rate 20 20 Blood Pressure 130/62 Pulse Oximetry 98 98 Oxygen Delivery Room Air 09/06/21 08:14 Temperature Pulse Rate 75 Respiratory Rate Blood Pressure Pulse Oximetry Oxygen Delivery Intake/Output Intake/Output: Intake & Output 09/03/21 09/04/21 09/05/21 09/06/21 23:59 23:59 23:59 23:59 Intake Total 1849 2470 600 Output Total 200 1250 600 Balance 1649 1220 0 Meds/Results Medications: Active Medications Generic Name Dose Route Start Last Admin Trade Name Freq PRN Reason Stop Dose Admin Acetaminophen 500 mg 09/04/21 08:35 Acetaminophen 500 Mg Tablet PO Q6H PRN Fever Or Pain Digoxin 250 mcg 09/04/21 09:00 09/05/21 08:23 Digoxin 250 Mcg Tablet PO 250 mcg DAILY SIGRID Administration Diphenhydramine HCl 25 mg 09/04/21 08:35 09/04/21 17:47 Diphenhydramine Hcl Cap 25 Mg Capsule PO 25 mg TID PRN Administration Itching Ergocalciferol 50,000 unit 09/07/21 09:00 Ergocalciferol 50,000 Unit Capsule PO Tu@0900 SIGRID Fentanyl Citrate 25 mcg 09/04/21 20:30 Fentanyl Citrate Inj (*Crx) 100 Mcg/2 Ml Vial IV PUSH Q2M PRN Pain Metronidazole 500 mg in 100 mls @ 100 mls/hr 09/04/21 14:00 09/06/21 06:15 Flagyl 500 Mg/Iso Soln 100 Ml IVPB Infused Q8H SIGRID Infusion Ceftriaxone Sodium/Dextrose 1 gm in 50 mls @ 100 mls/hr 09/04/21 16:00 09/05/21 15:42 Rocephin 1 Gm/D5w 50 Ml IVPB Infused Q24H SIGRID Infusion Lisinopril 20 mg 09/04/21 09:00 09/05/21 08:23 Lisinopril 20 Mg Tablet PO 20 mg DAILY SIGRID Administration Melatonin 5 mg 09/04/21 08:35 Melatonin 5 Mg Tablet PO HS PRN Sleep Metoprolol Tartrate 25 mg 09/04/21 09:00 09/06/21 08:14 Metoprolol Tartrate 25 Mg Tablet PO 25 mg Q12HR SIGRID Administration Multivitamins/Calcium 1 tablet 09/04/21 09:00 09/06/21 08:14 Therapeutic Multivitamins/Minerals Tab (*Bkc) PO 1 tablet DAILY SIGRID Administration Ondansetron HCl 4 mg 09/04/21 08:26 Ondansetron Inj 4 Mg/2 Ml Vial IV PUSH Q6H PRN Nausea And Vomiting Ondansetron HCl 4 mg 09/04/21 20:30 Ondansetron Inj 4 Mg/2 Ml Vial IV PUSH ONCE PRN
[2021-09-06] MEDS: DIGOXIN 250 MCG TABLET PO (08:39)
[2021-09-06] MEDS: lisinopriL 20 MG TABLET PO (08:39)
[2021-09-06] MEDS: MAGNESIUM SULF 2 GM/WATER 50ML 2 GM/50 ML BAG IVPB (10:13)
[2021-09-06] MEDS: SODIUM CHLORIDE 0.9% IV 1,000 ML 100 ML IV CONT ×2 (10:17→21:20)
--- NOTE | 2021-09-06 10:42 | PC.NURSE ---
urine samples collected and sent to lab for analysis.
--- NOTE | 2021-09-06 10:45 | PC.NURSE ---
Dario MASSEY called for bowel prep order, pt scheduled for EGD and colonoscopy tomorrow.
[2021-09-06 10:46] LABS: Creatinine Urine 88.6 mg/dL
[2021-09-06 10:47] LABS: Sodium Urine Random 62 meq/L
[2021-09-06 10:53] LABS: Urea Random Urine 316 MG/DL
--- NOTE | 2021-09-06 11:17 | WPDGIPROGNO ---
Progress Note: A&P Assessment and Plan (1) GI bleed: Code(s): K92.2 - Gastrointestinal hemorrhage, unspecified Status: Acute Assessment and Plan: egd and colonoscopy tomorrow, probably rectal bleeding from proctitis but could not get good history because confusion more recommendations after scope (2) Anemia: Code(s): D64.9 - Anemia, unspecified Status: Acute Assessment and Plan: h/h stable (3) Urinary retention: Code(s): R33.9 - Retention of urine, unspecified Status: Acute Assessment and Plan: treated by urology (4) Alzheimer disease: Code(s): G30.9 - Alzheimer's disease, unspecified; F02.80 - Dementia in other diseases classified elsewhere without behavioral disturbance Status: Acute Assessment and Plan: he is confused (5) Hemorrhagic proctocolitis: Code(s): K52.9 - Noninfective gastroenteritis and colitis, unspecified Status: Acute (6) Chronic anticoagulation: Code(s): Z79.01 - intermediate accountant (current) use of anticoagulants Status: Acute Subjective Date/time seen: 09/06/21 11:17 Interval history: no changes Review of Systems Review of Systems: ROS unobtainable: Yes unobtainable due to mental status Exam Const: General: cooperative, no acute distress, well developed, confusion and tired appearing Nutritional Appearance: well nourished and overweight Orientation/consciousness: oriented to person and confusion HENMT: Head: normal to inspection Ears: hearing grossly normal bilaterally General nose exam: Normal external nose present Teeth and gingiva: poor dentition Eyes: General: appearance normal, both eyes and all related structures Neck: Neck: normal visual inspection and supple Chest: Chest palpation & inspection: normal inspection of the chest Resp: Effort & Inspection: normal respiratory effort Auscultation: diminished lung sounds Cardio: Jugular venous distension: no JVD Rate: regular rate Heart sounds: S1 normal heart sound present and S2 normal heart sound present GI: Inspection: normal to inspection GI Palp: Yes Soft to palpation and No Tenderness to palpation present (GI) Auscultation: normal bowel sounds Urinary Catheter: Urinary Catheter: patent and draining Skin: General skin exam: normal color and no rashes or lesions noted Lesions: no lesions Neuro: General: moves all extremities, Normal light touch and pain sensation and confusion Cranial nerves: Yes Equal, round and reactive pupils present Cognition (Neuro): abnormal cognition Speech: normal speech Extrem: General: normal to inspection Psych: Appearance: disheveled Speech and movement: Normal speech and movement present and Clear speech present Thought process: Other thought process findings present (happily confused ) Insight: Poor insight present (Psych) Judgement: Poor judgement present (Psych) Other: he is awake and alert but confused Objective Data Vital Signs Vital Signs: Vital Signs - 24 hr 09/05/21 12:00 09/05/21 15:17 09/05/21 16:00 Temperature 97.6 F Pulse Rate 89 84 68 Respiratory Rate 22 H Blood Pressure 149/78 H Pulse Oximetry 97 Oxygen Delivery 09/05/21 17:22 09/05/21 20:10 09/05/21 21:58 Temperature 98.1 F Pulse Rate 86 81 Respiratory Rate 20 Blood Pressure 162/70 H Pulse Oximetry 97 99 Oxygen Delivery Room Air 09/05/21 20:00 09/06/21 00:00 09/06/21 04:00 Temperature Pulse Rate 80 78 78 Respiratory Rate Blood Pressure Pulse Oximetry Oxygen Delivery 09/06/21 05:54 09/06/21 08:00 09/06/21 08:14 Temperature 97.7 F Pulse Rate 75 75 75 Respiratory Rate 20 20 Blood Pressure 130/62 Pulse Oximetry 98 98 Oxygen Delivery Room Air 09/06/21 08:39 Temperature Pulse Rate 75 Respiratory Rate Blood Pressure Pulse Oximetry Oxygen Delivery Intake/Output Intake/Output: Intake & Output 09/03/21 09/04/21 09/05/21 09/06/21
--- NOTE | 2021-09-06 14:55 | PC.NURSE ---
consent signed on 09/04/21 for edg and colonoscopy
[2021-09-06] MEDS: polyethylene glycoL 3350 238 GM BOTTLE PO (16:16)
[2021-09-06] MEDS: BISACODYL 5 MG TABLET EC 20 MG PO (16:16)
--- NOTE | 2021-09-06 16:34 | PC.NURSE ---
pt on clear liquids for dinner, will be NPO at midnight for egd and colonoscopy tomorrow
[2021-09-06] MEDS: TAMSULOSIN HCL 0.4 MG CAPSULE PO (21:18)
[2021-09-07] VITALS (15 sets, daily range): BP systolic 123–177; BP diastolic 66–91; PULSE 65–99; RESP 12–26; TEMP 36.2–37.6; O2SAT 91–100
[2021-09-07] MEDS: MAGNESIUM CITRATE 300 ML BTL PO (03:14)
[2021-09-07 04:05] LABS: Glucose Point of Care 135 mg/dl (65-105)
--- NOTE | 2021-09-07 07:30 | PM.IMPN ---
Progress Note: A&P Assessment and Plan (1) GI bleed: Code(s): K92.2 - Gastrointestinal hemorrhage, unspecified Status: Acute Assessment and Plan: Seems to be lower GI bleed CT scan shows intraluminal hemorrhage H/H remains stable at 11.1/34.5, has decreased a little bit, but is probably from the fluids GI consulted thank you for your recommendation EGD and colonoscopy moved to Monday related to proctocolitis Antibiotics continued cipro/flagyl (2) Hemorrhagic proctocolitis: Code(s): K52.9 - Noninfective gastroenteritis and colitis, unspecified Status: Acute Assessment and Plan: Seen on the CT Cipro/Flagyl on board Trend H/H GI consulted thank you for your help WBC better with WBC at 10.1 Hold warfarin Give vitamin K one time EGD/Colonoscopy scheduled for Monday (3) Anemia: Code(s): D64.9 - Anemia, unspecified Status: Acute Assessment and Plan: Reported to have melena, with clots Secondary to GI Bleed H/H stable at this time Anemia labs iron 124, TIBC 277, % saturation 45, transferrin 185, ferritin 110, B12 272, folate 7 Supplement is not indicated at this time Probably related to acute blood loss, but could be multifactorial with the report of melena Transfuse as indicated Trend labs (4) Hyponatremia: Code(s): E87.1 - Hypo-osmolality and hyponatremia Status: Acute Assessment and Plan: Na is 127, went up with fluids IV fluids at 100ml/hr could potentially be from fluid overload Urine studies show Na of 62, Urea 316, creatinine 88.6 FENa score 0.2% and seems to be pre-renal, continue IV fluids Trend Na Adjust therapy as indicated Increase Na 4-6mmol/L per day Nephro consult for further recommendations (5) BPH (benign prostatic hyperplasia): Code(s): N40.0 - Benign prostatic hyperplasia without lower urinary tract symptoms Status: Acute Assessment and Plan: Continue tamsulosin Trend urine output CT indicates urinary distention urology consulted for difficult catheter placement Cystoscopy performed with catheter placement 09/04/21 (6) Alzheimer disease: Code(s): G30.9 - Alzheimer's disease, unspecified; F02.80 - Dementia in other diseases classified elsewhere without behavioral disturbance Status: Acute Assessment and Plan: Currently patient is oriented to self He thinks that he is at the half-way Pleasantly confused Could also be exacerbated by hyponatremia Seems to be close to his baseline (7) Major depressive disorder: Code(s): F32.9 - Major depressive disorder, single episode, unspecified Status: Acute Assessment and Plan: Stable Continue home medications at this time (8) HTN (hypertension): Code(s): I10 - Essential (primary) hypertension Status: Acute Assessment and Plan: Current BP is 123/67 Continue home metoprolol 25mg PO BID, Lisinopril 20 PO daily Trend blood pressure adjust therapy as indicated (9) Atrial fibrillation: Code(s): I48.91 - Unspecified atrial fibrillation Status: Acute Assessment and Plan: History of a. fib Obtain EKG Continue home digoxin Heart rate appears controlled Trend heart rate Telemonitor (10) Chronic anticoagulation: Code(s): Z79.01 - rn long term care (current) use of anticoagulants Status: Acute Assessment and Plan: Warfarin 5mg Daily for Afib and DVT/PEs Hold for now since he has a GI bleed INR down to 1.1 Restart when further recommended by GI Give vitamin k for Procedure tomorrow EGD/Colonoscopy Monday Trend PT/INR/PTT (11) Seizure: Code(s): R56.9 - Unspecified convulsions Status: Acute Assessment and Plan: Continue Phenytoin 6ml PO TID, and BID on Sundays Phenytoin 10, with
--- NOTE | 2021-09-07 07:30 | P.PNIM_ITS ---
Progress Note: A&P Assessment and Plan (1) GI bleed: Code(s): K92.2 - Gastrointestinal hemorrhage, unspecified Status: Acute Assessment and Plan: * Seems to be lower GI bleed * CT scan shows intraluminal hemorrhage * H/H remains stable at 11.1/34.5, has decreased a little bit, but is probably from the fluids * GI consulted thank you for your recommendation * EGD and colonoscopy moved to Monday * related to proctocolitis * Antibiotics continued cipro/flagyl (2) Hemorrhagic proctocolitis: Code(s): K52.9 - Noninfective gastroenteritis and colitis, unspecified Status: Acute Assessment and Plan: * Seen on the CT * Cipro/Flagyl on board * Trend H/H * GI consulted thank you for your help * WBC better with WBC at 10.1 * Hold warfarin * Give vitamin K one time * EGD/Colonoscopy scheduled for Monday (3) Anemia: Code(s): D64.9 - Anemia, unspecified Status: Acute Assessment and Plan: * Reported to have melena, with clots * Secondary to GI Bleed * H/H stable at this time * Anemia labs iron 124, TIBC 277, % saturation 45, transferrin 185, ferritin 110, B12 272, folate 7 * Supplement is not indicated at this time * Probably related to acute blood loss, but could be multifactorial with the report of melena * Transfuse as indicated * Trend labs (4) Hyponatremia: Code(s): E87.1 - Hypo-osmolality and hyponatremia Status: Acute Assessment and Plan: * Na is 127, went up with fluids * IV fluids at 100ml/hr * could potentially be from fluid overload * Urine studies show Na of 62, Urea 316, creatinine 88.6 * FENa score 0.2% and seems to be pre-renal, continue IV fluids * Trend Na * Adjust therapy as indicated * Increase Na 4-6mmol/L per day * Nephro consult for further recommendations (5) BPH (benign prostatic hyperplasia): Code(s): N40.0 - Benign prostatic hyperplasia without lower urinary tract symptoms Status: Acute Assessment and Plan: * Continue tamsulosin * Trend urine output * CT indicates urinary distention * urology consulted for difficult catheter placement * Cystoscopy performed with catheter placement 09/04/21 (6) Alzheimer disease: Code(s): G30.9 - Alzheimer's disease, unspecified; F02.80 - Dementia in other diseases classified elsewhere without behavioral disturbance Status: Acute Assessment and Plan: * Currently patient is oriented to self * He thinks that he is at the shelter * Pleasantly confused * Could also be exacerbated by hyponatremia * Seems to be close to his baseline (7) Major depressive disorder: Code(s): F32.9 - Major depressive disorder, single episode, unspecified Status: Acute Assessment and Plan: * Stable * Continue home medications at this time (8) HTN (hypertension): Code(s): I10 - Essential (primary) hypertension Status: Acute Assessment and Plan: * Current BP is 123/67 * Continue home metoprolol 25mg PO BID, Lisinopril 20 PO daily * Trend blood pressure * adjust therapy as indicated (9) Atrial fibrillation: Code(s): I48.91 - Unspecified atrial fibrillation Status: Acute Assessment and Plan: * History of a. fib * Obtain EKG * Continue home digoxin * Heart rate appears con
[2021-09-07 07:32] LABS: Basophils Percent Auto 0.2 % (0.2-1.2); Eosinophils Absolute Auto 0.5 K/mm3 (0-0.3); Eosinophils Percent Auto 5.1 % (0-4.4); Hematocrit 34.5 % (42.0-52.0); Hemoglobin 11.1 g/dL (14.0-18.0); Immature Granulocyte Absolute 0.05 K/mm3 (0.00-0.031); Immature Granulocyte Percent A 0.5 % (0-0.5); Lymphocytes Absolute Auto 0.89 K/mm3 (0.9-3.2); Lymphocytes Percent Auto 8.8 % (18.3-44.2); Mean Corpuscular HGB Conc 32.2 g/dl (32-36); Mean Corpuscular Hemoglobin 28.5 pg (26-34); Mean Corpuscular Volume 88.7 fl (80-100); Mean Platelet Volume 8.5 fl (7.4-10.4); Monocytes Absolute Auto 0.9 K/mm3 (0.1-0.6); Monocytes Percent Auto 8.8 % (2.6-8.5); Neutrophils Absolute Auto 7.8 K/mm3 (1.3-6.7); Neutrophils Percent Auto 76.6 % (45.5-73.1); Platelet Count Result 195 k/mm3 (150-375); Red Blood Count 3.89 M/mm3 (4.6-6.20); White Blood Count 10.1 K/mm3 (4.5-10.0)
[2021-09-07 07:49] LABS: Alanine Aminotransferase 26 U/L (6-50); Albumin Level 3.5 g/dL (3.5-5.1); Alkaline Phosphatase 86 U/L (38-126); Anion Gap 3 mmol/L (8-16); Aspartate Amino Transferase 25 U/L (17-59); Bilirubin,Total 0.3 mg/dL (0.2-1.3); Blood Urea Nitrogen 3 mg/dL (9-20); Calcium 7.8 mg/dL (8.4-10.2); Carbon Dioxide 34 mmol/L (22-30); Chloride 90 mmol/L (98-107); Estimated CRCL calculation 137 ml/min; Estimated Glomerular Filt Rate > 60; Glucose 133 mg/dL (65-110); Magnesium 2.1 mg/dL (1.6-2.3); Potassium 3.6 mmol/L (3.4-5.0); Sodium 127 mmol/L (137-145)
--- NOTE | 2021-09-07 08:04 | PC.NURSE ---
Flagyl 0600 dose not scanned on MAY by night RN, but IV bag was empty on IV pole.
--- NOTE | 2021-09-07 08:31 | PC.NURSE ---
Jessica (maintenance technician 3rd shift RN) placed NG tube and stated that patient needed it for bowel prep. It is unclear what prep is needed at this time so I called Jessica at home. She states that patient only took 2 or 3 sips of mag citrate and that she did not think he had much of the miralax either. There was 1 and 1/2 bottle of gatorade in the fridge with patient name on it but it did not look mixed with miralax. unable to find miralax or mag citrate. new bottle of mag citrate obtained and will be given via ng tube.
[2021-09-07] MEDS: MAGNESIUM CITRATE 300 ML BTL (08:38)
[2021-09-07] MEDS: TOLNAFTATE 1% POWDER 45 GM BTL 1 APPLIC TOPICAL ×2 (08:40→21:12)
--- NOTE | 2021-09-07 09:03 | WPDUROPN2 ---
Progress Note: A&P Assessment and Plan (1) Urethral stricture: Code(s): N35.919 - Unspecified urethral stricture, male, unspecified site Status: Acute Assessment and Plan: Status post urethral dilatation with placement of a 16 [place] tip catheter. Given his medical history and findings by Dr. Curtis, most likely will require chronic indwelling Perez catheter. He needs to follow-up in a month's time for Perez catheter removal in the office with catheter exchange at that time with our nurse practitioner Subjective Subjective Date/Time Seen: 09/07/21 09:03 Principal diagnosis: Urethral stricture Review of Systems Review of Systems: All systems reviewed & are unremarkable except as noted in HPI and below Exam Urinary Catheter: Urinary Catheter: patent and draining and urine clear Objective Data Vital Signs Vital Signs: Vital Signs - 24 hr 09/06/21 12:00 09/06/21 14:00 09/06/21 16:00 Temperature 36.9 C Pulse Rate 71 68 67 Respiratory Rate 20 Blood Pressure 147/74 H Pulse Oximetry 96 09/06/21 21:18 09/06/21 22:00 09/06/21 20:00 Temperature 36.7 C Pulse Rate 88 71 74 Respiratory Rate 16 Blood Pressure 120/70 Pulse Oximetry 96 09/07/21 00:00 09/07/21 04:00 09/07/21 06:00 Temperature 36.4 C Pulse Rate 65 69 70 Respiratory Rate 16 Blood Pressure 123/67 Pulse Oximetry 98 Intake/Output Intake/Output: Intake & Output 09/04/21 09/05/21 09/06/21 09/07/21 23:59 23:59 23:59 23:59 Intake Total 1849 2470 2280 Output Total 200 1250 1100 Balance 1649 1220 1180 Meds/Results Medications: Active Medications Generic Name Dose Route Start Last Admin Trade Name Freq PRN Reason Stop Dose Admin Acetaminophen 500 mg 09/04/21 08:35 Acetaminophen 500 Mg Tablet PO Q6H PRN Fever Or Pain Digoxin 250 mcg 09/04/21 09:00 09/06/21 08:39 Digoxin 250 Mcg Tablet PO 250 mcg DAILY SIGRID Administration Diphenhydramine HCl 25 mg 09/04/21 08:35 09/04/21 17:47 Diphenhydramine Hcl Cap 25 Mg Capsule PO 25 mg TID PRN Administration Itching Ergocalciferol 50,000 unit 09/07/21 09:00 Ergocalciferol 50,000 Unit Capsule PO Tu@0900 SIGRID Fentanyl Citrate 25 mcg 09/04/21 20:30 Fentanyl Citrate Inj (*Crx) 100 Mcg/2 Ml Vial IV PUSH Q2M PRN Pain Metronidazole 500 mg in 100 mls @ 100 mls/hr 09/04/21 14:00 09/07/21 08:03 Flagyl 500 Mg/Iso Soln 100 Ml IVPB Not Given Q8H SIGRID Ceftriaxone Sodium/Dextrose 1 gm in 50 mls @ 100 mls/hr 09/04/21 16:00 09/06/21 17:21 Rocephin 1 Gm/D5w 50 Ml IVPB 100 mls/hr Q24H SIGRID Administration Sodium Chloride 1,000 mls @ 100 mls/hr 09/06/21 10:10 09/06/21 21:20 Normal Saline Iv IV CONT 100 mls/hr .Q10H SIGRID Administration Lisinopril 20 mg 09/04/21 09:00 09/06/21 08:39 Lisinopril 20 Mg Tablet PO 20 mg DAILY SIGRID Administration Melatonin 5 mg 09/04/21 08:35 Melatonin 5 Mg Tablet PO HS PRN Sleep Metoprolol Tartrate 25 mg 09/04/21 09:00 09/06/21 21:18 Metoprolol Tartrate 25 Mg Tablet PO 25 mg Q12HR SIGRID Administration Multivitamins/Calcium 1 tablet 09/04/21 09:00 09/06/21 08:14 Therapeutic Multivitamins/Minerals Tab (*Bkc) PO 1 tablet DAILY SIGRID Administration Ondansetron HCl 4 mg 09/04/21 08:26 Ondansetron Inj 4 Mg/2 Ml Vial IV PUSH Q6H PRN Nausea And Vomiting Ondansetron HCl 4 mg 09/04/21 20:30 Ondansetron Inj 4 Mg/2 Ml Vial IV PUSH ONCE PRN Nausea Pantoprazole Sodium 40 mg 09/04/21 21:00 09/06/21 21:18 Pantoprazole Sodium Iv 40 Mg Vial IV PUSH 40 mg Q12HR SIGRID Administration Perflutren Lipid Microsphere 0 ml 09/04/21 08:25 Perflutren Lipid Microspheres 1.5 Ml Vial Diluted To 10 Ml Total Volume IV PUSH ONCE PRN adequate visualization Protocol Phenytoin 150 mg 09/05/21 09:00 09/05/21 16:09 Phenytoin Susp 100 Mg/4 Ml Udc PO 15
[2021-09-07] MEDS: PANTOPRAZOLE SODIUM IV 40 MG VIAL IV PUSH (09:31)
--- NOTE | 2021-09-07 11:55 | PC.NURSE ---
To GI lab per carmen @ [id number].
[2021-09-07] MEDS: LACTATED RINGERS 1,000 ML 150 ML IV CONT (12:01)
--- NOTE | 2021-09-07 12:21 | WPDANESEPPF ---
Anes - Initial Pre Proc Eval Procedure: Operation Date: 09/04/21 19:30 Proposed Procedures p Cysto, RPG, Stone Ext, Stent Placement - Papi Curtis MD Operation Date: 09/05/21 07:30 Proposed Procedures p Esophagogastroduodenoscopy & Colonoscopy - Titi Kelley MD Operation Date: 09/07/21 15:30 Proposed Procedures p Esophagogastroduodenoscopy & Colonoscopy - Titi Kelley MD Date/Time: 09/07/21 12:21 Surgeon: Mark Reardon MD Pre Op Diagnosis: LGIB Patient Data Age: 81 Gender: M Height: 1.85 m Weight: 95 kg Last Vital Signs Temp 98.8 F 09/07/21 11:57 Pulse 99 09/07/21 11:57 Resp 20 09/07/21 11:57 BP 177/91 H 09/07/21 11:57 Pulse Ox 92 09/07/21 11:57 O2 Del Method Room Air 09/07/21 11:57 O2 Flow Rate 2 09/05/21 08:00 Allergies Allergy/AdvReac Type Severity Reaction Status Date / Time PIPERACILLIN SODIUM Allergy Mild RASH Uncoded 09/07/21 11:56 TAZOBACTAM SODIUM Allergy Mild RASH Uncoded 09/07/21 11:56 Home Medications Medication Instructions Recorded Confirmed Type acetaminophen 500 mg tablet 500 mg PO Q6H PRN Fever Or Pain 09/04/21 09/04/21 History aspirin 81 mg tablet,delayed 81 mg PO DAILY 09/04/21 09/04/21 History release betamethasone dipropionate 0.05 % 1 applic topical DAILY 09/04/21 09/04/21 History topical cream cholecalciferol (vitamin D3) 1,250 1,250 mcg PO WEEKLY 09/04/21 09/04/21 History mcg (50,000 unit) capsule digoxin 250 mcg (0.25 mg) tablet 250 mcg PO DAILY 09/04/21 09/04/21 History diphenhydramine HCl 25 mg capsule 25 mg PO Q6H PRN Itching 09/04/21 09/04/21 History (Benadryl) lisinopril 20 mg tablet 20 mg PO DAILY 09/04/21 09/04/21 History melatonin 5 mg tablet 5 mg PO HS PRN Sleep 09/04/21 09/04/21 History metoprolol tartrate 25 mg tablet 12.5 mg PO BID 09/04/21 09/04/21 History multivitamin with minerals 1 tablet PO DAILY 09/04/21 09/04/21 History (Multiple Vitamin-Minerals tablet) phenytoin 125 mg/5 mL oral 6 ml PO BID 09/04/21 09/04/21 History suspension phenytoin 125 mg/5 mL oral 6 ml PO TID 09/04/21 09/04/21 History suspension primidone 50 mg tablet 200 mg PO TID 09/04/21 09/04/21 History sertraline 25 mg tablet 75 mg PO EVERY OTHER DAY 09/04/21 09/04/21 History tamsulosin 0.4 mg capsule 0.4 mg PO HS 09/04/21 09/04/21 History warfarin 5 mg tablet 5 mg PO DAILY 09/04/21 09/04/21 History Laboratory Tests 09/06/21 09/07/21 09/07/21 20:35 06:42 06:42 WBC 10.1 K/mm3 H K/mm3 (4.5-10.0) RBC 3.89 M/mm3 L M/mm3 (4.6-6.20) Hgb 11.1 g/dL L g/dL (14.0-18.0) Hct 34.5 % L % (42.0-52.0) MCV 88.7 fl fl (80-100) MCH 28.5 pg pg (26-34) MCHC 32.2 g/dl g/dl (32-36) RDW 13.0 % % (11.5-14.5) Plt Count 195 k/mm3 k/mm3 (150-375) MPV 8.5 fl fl (7.4-10.4) Immature Gran % (Auto) 0.5 % % (0-0.5) Neut % (Auto) 76.6 % H % (45.5-73.1) Lymph % (Auto) 8.8 % L % (18.3-44.2) [place] % (Auto) 8.8 % H % (2.6-8.5) Eos % (Auto) 5.1 % H % (0-4.4) Baso % (Auto) 0.2 % % (0.2-1.2) Lymph # (Auto) 0.89 K/mm3 L K/mm3 (0.9-3.2) [place] # (Auto) 0.9 K/mm3 H K/mm3 (0.1-0.6) Eos # (Auto) 0.5 K/mm3 H K/mm3 (0-0.3) Baso # (Auto) 0.0 K/mm3 K/mm3 (0.0-0.1) Abs Immat Gran (auto) 0.05 K/mm3 H K/mm3 (0.00-0.031) Absolute Neuts (auto) 7.8 K/mm3 H K/mm3 (1.3-6.7) Absolute Nucleated RBC 0.0 K/mm3 K/mm3 (0.0-0.012) Nucleated RBC % 0.0 % % (0.0-0.2) Sodium 127 mmol/L L mmol/L (137-145) Potassium 3.6 mmol/L mmol/L (3.4-5.0) Chloride 90 mmol/L L mmol/L (98-107) Carbon Dioxide 34 mmol/L H mmol/L (22-30) Anion Gap 3 mmol/L L mmol/L (8-16) BUN 3 mg/dL L mg/dL (9-20) Creatinine 0.40 mg/dL L mg/
--- NOTE | 2021-09-07 12:51 | SUR.OPER ---
EGD ended at 1243. Colonoscopy began at 1248.
[2021-09-07] MEDS: metroNIDAZOLE 500 MG/ISO 100ML 500 MG/100 ML BAG 100 MG IVPB ×2 (13:46→21:11)
[2021-09-07] MEDS: lisinopriL 20 MG TABLET PO (15:25)
[2021-09-07] MEDS: DIGOXIN 250 MCG TABLET PO (15:26)
[2021-09-07] MEDS: METOPROLOL TARTRATE 25 MG TABLET PO ×2 (15:26→21:11)
[2021-09-07] MEDS: PRIMIDONE 50 MG TABLET 200 MG PO ×2 (15:29→18:53)
[2021-09-07 17:08] LABS: Sodium 129 mmol/L (137-145)
[2021-09-07 18:18] LABS: Total Protein Urine Random 40 mg/dL; Ur Ttl Prot Creatinine Ratio 0.89 mg/mg (0-0.20)
[2021-09-07 18:29] LABS: Sodium Urine Random 143 meq/L
[2021-09-07] MEDS: SODIUM CHLORIDE 0.9% IV 1,000 ML 100 ML IV CONT ×2 (18:57→19:52)
[2021-09-07 20:05] LABS: Glucose Point of Care 152 mg/dl (65-105)
[2021-09-07] MEDS: TAMSULOSIN HCL 0.4 MG CAPSULE PO (21:11)
[2021-09-08] VITALS (9 sets, daily range): BP systolic 160–180; BP diastolic 70–79; PULSE 77–97; RESP 16–20; TEMP 36.7–37; O2SAT 90–93
[2021-09-08] MEDS: SODIUM CHLORIDE 0.9% IV 1,000 ML 100 ML IV CONT (04:22)
[2021-09-08] MEDS: metroNIDAZOLE 500 MG/ISO 100ML 500 MG/100 ML BAG 100 MG IVPB ×3 (05:45→21:24)
[2021-09-08 07:28] LABS: Basophils Percent Auto 0.2 % (0.2-1.2); Eosinophils Absolute Auto 0.5 K/mm3 (0-0.3); Eosinophils Percent Auto 4.2 % (0-4.4); Hematocrit 33.3 % (42.0-52.0); Hemoglobin 11.1 g/dL (14.0-18.0); Immature Granulocyte Absolute 0.06 K/mm3 (0.00-0.031); Immature Granulocyte Percent A 0.6 % (0-0.5); Lymphocytes Absolute Auto 0.84 K/mm3 (0.9-3.2); Lymphocytes Percent Auto 7.9 % (18.3-44.2); Mean Corpuscular HGB Conc 33.3 g/dl (32-36); Mean Corpuscular Volume 86.9 fl (80-100); Mean Platelet Volume 8.4 fl (7.4-10.4); Monocytes Absolute Auto 0.9 K/mm3 (0.1-0.6); Monocytes Percent Auto 8.4 % (2.6-8.5); Neutrophils Absolute Auto 8.4 K/mm3 (1.3-6.7); Neutrophils Percent Auto 78.7 % (45.5-73.1); Platelet Count Result 197 k/mm3 (150-375); Red Blood Count 3.83 M/mm3 (4.6-6.20); Red Cell Distribution Width 12.8 % (11.5-14.5); White Blood Count 10.6 K/mm3 (4.5-10.0)
--- NOTE | 2021-09-08 07:30 | PM.IMPN ---
Progress Note: A&P Assessment and Plan (1) GI bleed: Code(s): K92.2 - Gastrointestinal hemorrhage, unspecified Status: Acute Assessment and Plan: Seems to be lower GI bleed CT scan shows intraluminal hemorrhage H/H remains stable at 11.1/33.3, has decreased a little bit, but is probably from the fluids GI consulted thank you for your recommendation EGD gastritis with no signs of bleeding colonoscopy diverticulosis without perforation, abscess, or bleeding related to proctocolitis Antibiotics continued, per GI for today and tomorrow (2) Hemorrhagic proctocolitis: Code(s): K52.9 - Noninfective gastroenteritis and colitis, unspecified Status: Acute Assessment and Plan: Seems to be resolved Seen on the CT Ceftriaxone/Flagyl on board Trend H/H GI consulted thank you for your help WBC 10.6 Warfarin continued EGD gastritis with no signs of bleeding colonoscopy diverticulosis without perforation, abscess, or bleeding (3) Anemia: Code(s): D64.9 - Anemia, unspecified Status: Acute Assessment and Plan: Reported to have melena, with clots Secondary to GI Bleed H/H stable at this time Anemia labs iron 124, TIBC 277, % saturation 45, transferrin 185, ferritin 110, B12 272, folate 7 Supplement is not indicated at this time Probably related to acute blood loss, but could be multifactorial with the report of melena Transfuse as indicated Trend labs (4) Hyponatremia: Code(s): E87.1 - Hypo-osmolality and hyponatremia Status: Acute Assessment and Plan: Na is 127 this morning, was higher yesterday at 129 IV fluids at 100ml/hr could potentially be from fluid overload Urine studies show Na of 62, Urea 316, creatinine 88.6 FENa score 0.2% and seems to be pre-renal, continue IV fluids Trend Na Adjust therapy as indicated Increase Na 4-6mmol/L per day Nephro consult for further recommendations (5) BPH (benign prostatic hyperplasia): Code(s): N40.0 - Benign prostatic hyperplasia without lower urinary tract symptoms Status: Acute Assessment and Plan: Continue tamsulosin Trend urine output CT indicates urinary distention urology consulted for difficult catheter placement Cystoscopy performed with catheter placement 09/04/21 (6) Alzheimer disease: Code(s): G30.9 - Alzheimer's disease, unspecified; F02.80 - Dementia in other diseases classified elsewhere without behavioral disturbance Status: Acute Assessment and Plan: Seems to be getting better, it seems that this could be due to the hearing loss Probably more related to hearing difficulties and inability to find glasses Currently patient is oriented to self Pleasantly confused Could also be exacerbated by hyponatremia Seems to be close to his baseline (7) Major depressive disorder: Code(s): F32.9 - Major depressive disorder, single episode, unspecified Status: Acute Assessment and Plan: Stable Continue home medications at this time (8) HTN (hypertension): Code(s): I10 - Essential (primary) hypertension Status: Acute Assessment and Plan: Current BP is 164/73 Continue home metoprolol 25mg PO BID, Lisinopril 20 PO daily Trend blood pressure adjust therapy as indicated (9) Atrial fibrillation: Code(s): I48.91 - Unspecified atrial fibrillation Status: Acute Assessment and Plan: History of a. fib EKG SR in the 60s Continue home digoxin and metoprolol Heart rate appears controlled Trend heart rate Telemonitor does show some times of afib at a fast rate. (10) Chronic anticoagulation: Code(s): Z79.01 - nursing home (current) use of anticoagulants Status: Acute Assessment and Plan: Warfarin 5mg Daily for Afib and DVT/PEs Per GI ok to restart a
--- NOTE | 2021-09-08 07:30 | P.PNIM_ITS ---
Progress Note: A&P Assessment and Plan (1) GI bleed: Code(s): K92.2 - Gastrointestinal hemorrhage, unspecified Status: Acute Assessment and Plan: * Seems to be lower GI bleed * CT scan shows intraluminal hemorrhage * H/H remains stable at 11.1/33.3, has decreased a little bit, but is probably from the fluids * GI consulted thank you for your recommendation * EGD gastritis with no signs of bleeding * colonoscopy diverticulosis without perforation, abscess, or bleeding * related to proctocolitis * Antibiotics continued, per GI for today and tomorrow (2) Hemorrhagic proctocolitis: Code(s): K52.9 - Noninfective gastroenteritis and colitis, unspecified Status: Acute Assessment and Plan: * Seems to be resolved * Seen on the CT * Ceftriaxone/Flagyl on board * Trend H/H * GI consulted thank you for your help * WBC 10.6 * Warfarin continued * EGD gastritis with no signs of bleeding * colonoscopy diverticulosis without perforation, abscess, or bleeding (3) Anemia: Code(s): D64.9 - Anemia, unspecified Status: Acute Assessment and Plan: * Reported to have melena, with clots * Secondary to GI Bleed * H/H stable at this time * Anemia labs iron 124, TIBC 277, % saturation 45, transferrin 185, ferritin 110, B12 272, folate 7 * Supplement is not indicated at this time * Probably related to acute blood loss, but could be multifactorial with the report of melena * Transfuse as indicated * Trend labs (4) Hyponatremia: Code(s): E87.1 - Hypo-osmolality and hyponatremia Status: Acute Assessment and Plan: * Na is 127 this morning, was higher yesterday at 129 * IV fluids at 100ml/hr * could potentially be from fluid overload * Urine studies show Na of 62, Urea 316, creatinine 88.6 * FENa score 0.2% and seems to be pre-renal, continue IV fluids * Trend Na * Adjust therapy as indicated * Increase Na 4-6mmol/L per day * Nephro consult for further recommendations (5) BPH (benign prostatic hyperplasia): Code(s): N40.0 - Benign prostatic hyperplasia without lower urinary tract symptoms Status: Acute Assessment and Plan: * Continue tamsulosin * Trend urine output * CT indicates urinary distention * urology consulted for difficult catheter placement * Cystoscopy performed with catheter placement 09/04/21 (6) Alzheimer disease: Code(s): G30.9 - Alzheimer's disease, unspecified; F02.80 - Dementia in other diseases classified elsewhere without behavioral disturbance Status: Acute Assessment and Plan: * Seems to be getting better, it seems that this could be due to the hearing loss * Probably more related to hearing difficulties and inability to find glasses * Currently patient is oriented to self * Pleasantly confused * Could also be exacerbated by hyponatremia * Seems to be close to his baseline (7) Major depressive disorder: Code(s): F32.9 - Major depressive disorder, single episode, unspecified Status: Acute Assessment and Plan: * Stable * Continue home medications at this time (8) HTN (hypertension): Code(s): I10 - Essential (primary) hypertension Status: Acute Assessment and Plan: * Current BP is 164/73 * Continue home metoprolol 25mg PO BID, Lisinopril 20 PO daily * Trend blood pressure * adj
[2021-09-08 07:48] LABS: Alanine Aminotransferase 27 U/L (6-50); Albumin Level 3.1 g/dL (3.5-5.1); Alkaline Phosphatase 83 U/L (38-126); Anion Gap 1 mmol/L (8-16); Aspartate Amino Transferase 26 U/L (17-59); Bilirubin,Total 0.2 mg/dL (0.2-1.3); Blood Urea Nitrogen 4 mg/dL (9-20); Calcium 7.5 mg/dL (8.4-10.2); Carbon Dioxide 34 mmol/L (22-30); Chloride 92 mmol/L (98-107); Estimated CRCL calculation 137 ml/min; Estimated Glomerular Filt Rate > 60; Glucose 131 mg/dL (65-110); Magnesium 1.9 mg/dL (1.6-2.3); Phosphorus 2.4 mg/dL (2.5-4.5); Potassium 3.4 mmol/L (3.4-5.0); Sodium 127 mmol/L (137-145)
[2021-09-08 08:07] LABS: INR 1.1; Prothrombin Time 13.5 Seconds (11.1-14.7)
[2021-09-08 08:08] LABS: Partial Thromboplastin Time 30.7 SECONDS (22.3-36.8)
[2021-09-08 08:10] LABS: Glucose Point of Care 144 mg/dl (65-105)
--- NOTE | 2021-09-08 08:20 | PM.CNNEP ---
Assessment and Plan Additional Plan 1. Rudy has hyponatremia. He has had intermittent low sodiums back to 2008. The sodium was 124 on admission which is lower than it usually is even 1 low in the past. The patient is on sertraline which can cause hyponatremia. This has been discontinued. Possibly, because he was feeling poorly, he was not eating very well and was drinking fluid before admission. Patient does not seem to have after active cancer or pulmonary issues. 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 He is on pantoprazole also can cause low sodium however he does have GI issues so will leave this on board. He does have some swelling. This might indicate some volume overload however fluids have made his sodium levels better. Echocardiogram looks okay except for some diastolic dysfunction. CT does not show a reason for swelling. Albumin level is 3.1. There is not much protein in the urine. Will check venous Dopplers. Cortisol level is less than 15 so will check a Koul Cortrosyn stim test. At this point will initiate fluid restriction. Will change saline to salt tablets plus furosemide to help get rid of the swelling and bring the sodium back at the same time. 2. Patient had GI bleeding. Evaluation by Dr. Bishop. Scopes noted. 3. The patient has hypertension. Blood pressure is a bit high. He is on metoprolol and lisinopril. Will see how he does with the diuretics. 4. Dementia, schizophrenia, OCD. 5. 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 Will make sure there is not a clot there. He is already on anticoagulants though. But it would explain the swelling. History of Present Illness Reason for Consult Consult date: 09/08/21 Chief Complaint Chief complaint: LGIB History of Present Illness Narrative: Rudy is a very pleasant 81-year-old gentleman who has multiple medical problems including COPD GERD atrial fibrillation schizoaffective disorder DVTs, BPH, Alzheimer's disease, or obsessive-compulsive disorder, seizures, and anemia. The patient rigidly came into the hospital because of bleeding from the lower GI tract. GI was consulted. EGD which showed gastritis and he had a colonoscopy which showed rectosigmoiditis and diverticulosis. It is felt that the bleeding was coming from the lower intestines. He was on Coumadin and this was held. His INR was 2.4. Bleeding slowed down it was restarted. His hemoglobin only dropped into the low 11s. The patient also had urinary retention. He was found to have a urethral stricture. He was seen by Dr. Ayala who to dilated and placed a Perez. He will follow-up in Dr. Ayala office down the line. The patient was also found to have a low sodium at 1:24 a.m. on admission. This improved to 127 and then dropped to 125. Yesterday consultation was requested but he was unable to be seen because of his being scoped. His sodium level did rise to 129 last night and then is 127 today. He cannot give a history. He cannot give a review of systems. He has been on sertraline as an outpatient. This was discontinued yesterday. Has no history of active cancer. Chest x-ray does not show any pulmonary process that would cause hyponatremia. He has not had any brain imaging. He has not been placed on a fluid restriction. Review of Systems Review of Systems: ROS unobtainable: Yes unobtainable due to medical condition [facility] Past Medical History Medical History Alzheimer disease Anemia Anxiety Atrial fibrillation BPH (benign prostatic hyperplasia) Colitis COPD (chronic obstructive pulmonary disease) COVID-19 DVT (deep venous thrombosis) Embolism GERD (gastroesophageal reflux disease) HTN (hypertension) Major depressive disorder Osteoporosis Pulmonary embolism PVD (peripheral vascular disease) Schizo affective schizophrenia Seizure Family H
[2021-09-08] MEDS: DIGOXIN 250 MCG TABLET PO (09:22)
[2021-09-08] MEDS: COSYNTROPIN 0.25 MG/ML VIAL IV PUSH (09:22)
[2021-09-08] MEDS: METOPROLOL TARTRATE 25 MG TABLET PO (09:23)
[2021-09-08] MEDS: FUROSEMIDE 40 MG TABLET PO ×2 (09:23→17:38)
[2021-09-08] MEDS: lisinopriL 20 MG TABLET PO (09:23)
[2021-09-08] MEDS: THERAPEUTIC MULTIVITAMINS/MINERALS TAB (*BKC) 1 TABLET PO (09:24)
[2021-09-08] MEDS: PANTOPRAZOLE 40 MG TABLET PO (09:24)
[2021-09-08 09:25] LABS: Cortisol Baseline 5.36 ug/dL
[2021-09-08] MEDS: SODIUM CHLORIDE 1 GM TABLET PO ×2 (09:25→17:40)
[2021-09-08] MEDS: PRIMIDONE 50 MG TABLET 200 MG PO ×3 (09:25→17:39)
[2021-09-08] MEDS: TOLNAFTATE 1% POWDER 45 GM BTL 1 APPLIC TOPICAL ×2 (09:26→21:25)
--- NOTE | 2021-09-08 10:06 | PCPTNOTE ---
Per OT, spoke with hospitalist and patient at baseline. PT orders DC
--- NOTE | 2021-09-08 10:26 | WPDANESPN ---
Anes - Prog Note Post-Op Date/Time: 09/08/21 10:26 Cardiovascular status: normal Respiratory status: normal Airway patency: baseline Mental status: baseline Post-Op hydration status: normal Vital Signs: Last Vital Signs Temp 36.7 C 09/08/21 06:00 Pulse 90 09/08/21 06:00 Resp 20 09/08/21 06:00 BP 164/73 H 09/08/21 06:00 Pulse Ox 90 09/08/21 06:00 O2 Del Method Nasal Cannula 09/07/21 13:23 O2 Flow Rate 1 09/07/21 13:23 Pain Score (VAS): 0 I/O: Intake & Output 09/07/21 09/08/21 09/08/21 23:59 07:59 15:59 Intake Total 1390 1550 240 Output Total 1500 400 Balance -110 1150 240 Laboratory Tests 09/08/21 06:51 09/08/21 06:51 09/06/21 09/06/21 09/07/21 07:05 07:05 06:35 WBC RBC Hgb Hct MCV MCH MCHC RDW Plt Count MPV Immature Gran % (Auto) Neut % (Auto) Lymph % (Auto) [place] % (Auto) Eos % (Auto) Baso % (Auto) Lymph # (Auto) [place] # (Auto) Eos # (Auto) Baso # (Auto) Abs Immat Gran (auto) Absolute Neuts (auto) Absolute Nucleated RBC Nucleated RBC % PT INR APTT Sodium Potassium Chloride Carbon Dioxide Anion Gap BUN Creatinine Estim Creat Clear Calc Estimated GFR Glucose POC Capillary Glucose Serum Osmolality Pending Calcium Phosphorus Magnesium Total Bilirubin AST ALT Alkaline Phosphatase Total Protein Pending Albumin Pending Lpipa-3-Cnyijyqpw Pending Rxvrh-3-Hrhxauwrn Pending Labj-8-Sqeahrac Pending Yxeh-2-Ebvkiunb Pending Gamma Globulins Pending Abnorm Protein Band 1 Pending Abnorm Protein Band 3 Pending PEP Interpretation Pending TSH (Reflex) 3.060 Random Cortisol Cortisol Baseline Cortisol Resp 30 Min Urine Osmolality U Random Total Protein Ur Random Sodium Urine Creatinine Protein/Creat Ratio 2 09/07/21 09/07/21 09/07/21 06:35 16:51 17:58 WBC RBC Hgb Hct MCV MCH MCHC RDW Plt Count MPV Immature Gran % (Auto) Neut % (Auto) Lymph % (Auto) [place] % (Auto) Eos % (Auto) Baso % (Auto) Lymph # (Auto) [place] # (Auto) Eos # (Auto) Baso # (Auto) Abs Immat Gran (auto) Absolute Neuts (auto) Absolute Nucleated RBC Nucleated RBC % PT INR APTT Sodium 129 L Potassium Chloride Carbon Dioxide Anion Gap BUN Creatinine Estim Creat Clear Calc Estimated GFR Glucose POC Capillary Glucose Serum Osmolality Calcium Phosphorus Magnesium Total Bilirubin AST ALT Alkaline Phosphatase Total Protein Albumin Nqwwi-6-Jsvcblwxp Gqaxi-4-Ivcpphprr Thkd-8-Ayvnwqjs Yoew-6-Xeohcssq Gamma Globulins Abnorm Protein Band 1 Abnorm Protein Band 3 PEP Interpretation TSH (Reflex) Random Cortisol 12.70 Cortisol Baseline Cortisol Resp 30 Min Urine Osmolality Pending U Random Total Protein Ur Random Sodium Urine Creatinine Protein/Creat Ratio 2 09/07/21 09/07/21 09/08/21 17:58 19:56 06:47 WBC RBC Hgb Hct MCV MCH MCHC RDW Plt Count MPV Immature Gran % (Auto) Neut % (Auto) Lymph % (Auto) [place] % (Auto) Eos % (Auto) Baso % (Auto) Lymph # (Auto) [place] # (Auto) Eos # (Auto) Baso # (Auto) Abs Immat Gran (auto) Absolute Neuts (auto) Absolute Nucleated RBC Nucleated RBC % PT INR APTT Sodium Potassium Chloride Carbon Dioxide Anion Gap BUN Creatinine Estim Creat Clear Calc Estimated GFR Glucose POC Capillary Glucose 152 H Serum Osmolality Calcium Phosphorus Magnesium Total Bilirubin AST ALT Alkaline Phosphatase Total Protein Albumin [place]coe-2-Qnaixcjeb Joxms-9-Foyjpqgcj Pldt-3-Qbfreohf Beta-
--- NOTE | 2021-09-08 13:59 | WPDGIPROGNO ---
Progress Note: A&P Assessment and Plan (1) Proctitis: Code(s): K62.89 - Other specified diseases of anus and rectum Status: Acute Assessment and Plan: mild proctitis found yesterday, no signs of bleeding- confirmer by bx will start canasa supp ok to discontinue abx (2) Rectal bleeding: Code(s): K62.5 - Hemorrhage of anus and rectum Status: Acute Assessment and Plan: resolved, probably from proctitis (3) Gastritis: Code(s): K29.70 - Gastritis, unspecified, without bleeding Status: Acute Assessment and Plan: no signs of bleeding, no H pylori (path report reviewed) ppi daily (4) Urethral stricture: Code(s): N35.919 - Unspecified urethral stricture, male, unspecified site Status: Acute Assessment and Plan: treated with procedure and porter by urology (5) Chronic anticoagulation: Code(s): Z79.01 - 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 Colonoscopy showed mild proctitis, also gastritis- no signs of bleeding. Review of Systems Review of Systems: ROS unobtainable: Yes unobtainable due to medical condition Exam Const: General: cooperative, no acute distress, well developed and confusion Nutritional Appearance: well nourished and overweight Orientation/consciousness: oriented to person and confusion HENMT: Head: normal to inspection Ears: hearing grossly normal bilaterally General nose exam: Normal external nose present Teeth and gingiva: poor dentition Eyes: General: appearance normal, both eyes and all related structures Neck: Neck: normal visual inspection and supple Resp: Effort & Inspection: normal respiratory effort Cardio: Rate: regular rate Heart sounds: S1 normal heart sound present and S2 normal heart sound present GI: Inspection: normal to inspection GI Palp: Yes Soft to palpation and No Tenderness to palpation present (GI) Auscultation: normal bowel sounds Urinary Catheter: Urinary Catheter: patent and draining Skin: General skin exam: normal color and no rashes or lesions noted Lesions: no lesions Neuro: General: moves all extremities and confusion Cranial nerves: Yes Equal, round and reactive pupils present Cognition (Neuro): abnormal cognition Speech: normal speech Extrem: General: normal to inspection Psych: Appearance: disheveled Speech and movement: Normal speech and movement present and Clear speech present Thought process: Other thought process findings present (happily confused ) Insight: Poor insight present (Psych) Judgement: Poor judgement present (Psych) Other: he is awake and alert but confused Objective Data Vital Signs Vital Signs: Vital Signs - 24 hr 09/07/21 14:00 09/07/21 15:26 09/07/21 15:26 Temperature 97.1 F L Pulse Rate 90 89 89 Respiratory Rate 20 Blood Pressure 176/91 H Pulse Oximetry 100 09/07/21 16:00 09/07/21 20:00 09/07/21 21:11 Temperature Pulse Rate 94 95 95 Respiratory Rate Blood Pressure Pulse Oximetry 09/07/21 22:00 09/08/21 00:00 09/08/21 04:00 Temperature 99.6 F Pulse Rate 95 92 94 Respiratory Rate 12 Blood Pressure 174/74 H Pulse Oximetry 91 09/08/21 06:00 09/08/21 12:00 Temperature 98.0 F Pulse Rate 90 81 Respiratory Rate 20 Blood Pressure 164/73 H Pulse Oximetry 90 Intake/Output Intake/Output: Intake & Output 09/05/21 09/06/21 09/07/21 09/08/21 23:59 23:59 23:59 23:59 Intake Total 2470 2430 2590 1790 Output Total 1250 1100 1500 400 Balance 1220 1330 1090 1390 Meds/Results Medications: Active Medications Generic Name Dose Route Start Last Admin Trade Name Freq PRN Reason Stop Dose Admin Acetaminophen 500 mg
[2021-09-08 16:05] LABS: Sodium 128 mmol/L (137-145)
[2021-09-08 16:10] LABS: Alanine Aminotransferase 32 U/L (6-50); Albumin Level 3.4 g/dL (3.5-5.1); Alkaline Phosphatase 79 U/L (38-126); Anion Gap 1 mmol/L (8-16); Aspartate Amino Transferase 27 U/L (17-59); Bilirubin,Total 0.1 mg/dL (0.2-1.3); Blood Urea Nitrogen 4 mg/dL (9-20); Calcium 7.5 mg/dL (8.4-10.2); Carbon Dioxide 37 mmol/L (22-30); Chloride 91 mmol/L (98-107); Estimated CRCL calculation 137 ml/min; Estimated Glomerular Filt Rate > 60; Glucose 194 mg/dL (65-110); Potassium 3.4 mmol/L (3.4-5.0); Sodium 129 mmol/L (137-145)
[2021-09-08 16:25] LABS: NT Pro B Type Natriuretic Pept 532 pg/mL (5-100)
[2021-09-08] MEDS: hydrALAZINE HCL 20 MG/ML VIAL 10 MG IV PUSH (17:37)
[2021-09-08] MEDS: WARFARIN (*PBKC) 10 MG TABLET PO (17:40)
[2021-09-08] MEDS: MELATONIN 5 MG TABLET PO (21:24)
[2021-09-08] MEDS: METOPROLOL TARTRATE 50 MG TAB PO (21:24)
[2021-09-08] MEDS: TAMSULOSIN HCL 0.4 MG CAPSULE PO (21:24)
[2021-09-08] MEDS: MESALAMINE 1,000 MG SUPP.RECT 1000 MG RECTAL (21:25)
[2021-09-09] VITALS (12 sets, daily range): BP systolic 117–156; BP diastolic 78–86; PULSE 72–97; RESP 18–19; TEMP 36.6–36.9; O2SAT 90–93
[2021-09-09] MEDS: metroNIDAZOLE 500 MG/ISO 100ML 500 MG/100 ML BAG 100 MG IVPB ×3 (05:33→21:15)
[2021-09-09 06:49] LABS: Basophils Percent Auto 0.3 % (0.2-1.2); Eosinophils Absolute Auto 0.5 K/mm3 (0-0.3); Eosinophils Percent Auto 3.8 % (0-4.4); Hematocrit 34.6 % (42.0-52.0); Immature Granulocyte Absolute 0.05 K/mm3 (0.00-0.031); Immature Granulocyte Percent A 0.4 % (0-0.5); Lymphocytes Absolute Auto 0.83 K/mm3 (0.9-3.2); Lymphocytes Percent Auto 6.9 % (18.3-44.2); Mean Corpuscular HGB Conc 34.7 g/dl (32-36); Mean Corpuscular Hemoglobin 29.5 pg (26-34); Mean Platelet Volume 8.8 fl (7.4-10.4); Monocytes Absolute Auto 1.1 K/mm3 (0.1-0.6); Monocytes Percent Auto 9.3 % (2.6-8.5); Neutrophils Absolute Auto 9.5 K/mm3 (1.3-6.7); Neutrophils Percent Auto 79.3 % (45.5-73.1); Platelet Count Result 217 k/mm3 (150-375); Red Blood Count 4.07 M/mm3 (4.6-6.20); Red Cell Distribution Width 12.9 % (11.5-14.5)
[2021-09-09 07:01] LABS: INR 1.2; Prothrombin Time 14.4 Seconds (11.1-14.7)
[2021-09-09 07:04] LABS: Alanine Aminotransferase 34 U/L (6-50); Albumin Level 3.4 g/dL (3.5-5.1); Alkaline Phosphatase 78 U/L (38-126); Anion Gap 3 mmol/L (8-16); Aspartate Amino Transferase 30 U/L (17-59); Bilirubin,Total 0.4 mg/dL (0.2-1.3); Blood Urea Nitrogen 3 mg/dL (9-20); Calcium 7.5 mg/dL (8.4-10.2); Carbon Dioxide 36 mmol/L (22-30); Chloride 88 mmol/L (98-107); Estimated CRCL calculation 137 ml/min; Estimated Glomerular Filt Rate > 60; Glucose 135 mg/dL (65-110); Magnesium 1.6 mg/dL (1.6-2.3); Phosphorus 2.8 mg/dL (2.5-4.5); Potassium 3.3 mmol/L (3.4-5.0); Sodium 127 mmol/L (137-145)
--- NOTE | 2021-09-09 09:30 | P.PNIM_ITS ---
Progress Note: A&P Assessment and Plan (1) GI bleed: Code(s): K92.2 - Gastrointestinal hemorrhage, unspecified Status: Acute Assessment and Plan: * Seems to be lower GI bleed * CT scan shows intraluminal hemorrhage * H/H remains stable at 12.0/34.6, has decreased a little bit, but is probably from the fluids * GI consulted thank you for your recommendation * EGD gastritis with no signs of bleeding * colonoscopy diverticulosis without perforation, abscess, or bleeding * related to proctocolitis * Antibiotics continued, per GI for today and tomorrow (2) Hemorrhagic proctocolitis: Code(s): K52.9 - Noninfective gastroenteritis and colitis, unspecified Status: Acute Assessment and Plan: * Seems to be resolved * Seen on the CT * Ceftriaxone/Flagyl on board * Trend H/H * GI consulted thank you for your help * WBC 12.0 * Warfarin continued * EGD gastritis with no signs of bleeding * colonoscopy diverticulosis without perforation, abscess, or bleeding (3) Anemia: Code(s): D64.9 - Anemia, unspecified Status: Acute Assessment and Plan: * Reported to have melena, with clots * Secondary to GI Bleed * H/H stable at this time * Anemia labs iron 124, TIBC 277, % saturation 45, transferrin 185, ferritin 110, B12 272, folate 7 * Supplement is not indicated at this time * Probably related to acute blood loss, but could be multifactorial with the report of melena * Transfuse as indicated * Trend labs (4) Hyponatremia: Code(s): E87.1 - Hypo-osmolality and hyponatremia Status: Acute Assessment and Plan: * Na is 127 this morning, was higher yesterday at 129 * IV fluids at 100ml/hr * could potentially be from fluid overload * Urine studies show Na of 62, Urea 316, creatinine 88.6 * FENa score 0.2% and seems to be pre-renal, continue IV fluids * Trend Na * Adjust therapy as indicated * Increase Na 4-6mmol/L per day * Nephro consult for further recommendations (5) BPH (benign prostatic hyperplasia): Code(s): N40.0 - Benign prostatic hyperplasia without lower urinary tract symptoms Status: Acute Assessment and Plan: * Continue tamsulosin * Trend urine output * CT indicates urinary distention * urology consulted for difficult catheter placement * Cystoscopy performed with catheter placement 09/04/21 (6) Alzheimer disease: Code(s): G30.9 - Alzheimer's disease, unspecified; F02.80 - Dementia in other diseases classified elsewhere without behavioral disturbance Status: Acute Assessment and Plan: * Seems to be getting better, it seems that this could be due to the hearing loss * Probably more related to hearing difficulties and inability to find glasses * Currently patient is oriented to self * Pleasantly confused * Could also be exacerbated by hyponatremia * Seems to be close to his baseline * Added aricept (7) Major depressive disorder: Code(s): F32.9 - Major depressive disorder, single episode, unspecified Status: Acute Assessment and Plan: * Stable * Continue home medications at this time (8) HTN (hypertension): Code(s): I10 - Essential (primary) hypertension Status: Acute Assessment and Plan: * Current BP is 152/85 * Continue home metoprolol 25mg PO BID, Lisinopril 20 PO daily * Trend blo
--- NOTE | 2021-09-09 09:30 | PM.IMPN ---
Progress Note: A&P Assessment and Plan (1) GI bleed: Code(s): K92.2 - Gastrointestinal hemorrhage, unspecified Status: Acute Assessment and Plan: Seems to be lower GI bleed CT scan shows intraluminal hemorrhage H/H remains stable at 12.0/34.6, has decreased a little bit, but is probably from the fluids GI consulted thank you for your recommendation EGD gastritis with no signs of bleeding colonoscopy diverticulosis without perforation, abscess, or bleeding related to proctocolitis Antibiotics continued, per GI for today and tomorrow (2) Hemorrhagic proctocolitis: Code(s): K52.9 - Noninfective gastroenteritis and colitis, unspecified Status: Acute Assessment and Plan: Seems to be resolved Seen on the CT Ceftriaxone/Flagyl on board Trend H/H GI consulted thank you for your help WBC 12.0 Warfarin continued EGD gastritis with no signs of bleeding colonoscopy diverticulosis without perforation, abscess, or bleeding (3) Anemia: Code(s): D64.9 - Anemia, unspecified Status: Acute Assessment and Plan: Reported to have melena, with clots Secondary to GI Bleed H/H stable at this time Anemia labs iron 124, TIBC 277, % saturation 45, transferrin 185, ferritin 110, B12 272, folate 7 Supplement is not indicated at this time Probably related to acute blood loss, but could be multifactorial with the report of melena Transfuse as indicated Trend labs (4) Hyponatremia: Code(s): E87.1 - Hypo-osmolality and hyponatremia Status: Acute Assessment and Plan: Na is 127 this morning, was higher yesterday at 129 IV fluids at 100ml/hr could potentially be from fluid overload Urine studies show Na of 62, Urea 316, creatinine 88.6 FENa score 0.2% and seems to be pre-renal, continue IV fluids Trend Na Adjust therapy as indicated Increase Na 4-6mmol/L per day Nephro consult for further recommendations (5) BPH (benign prostatic hyperplasia): Code(s): N40.0 - Benign prostatic hyperplasia without lower urinary tract symptoms Status: Acute Assessment and Plan: Continue tamsulosin Trend urine output CT indicates urinary distention urology consulted for difficult catheter placement Cystoscopy performed with catheter placement 09/04/21 (6) Alzheimer disease: Code(s): G30.9 - Alzheimer's disease, unspecified; F02.80 - Dementia in other diseases classified elsewhere without behavioral disturbance Status: Acute Assessment and Plan: Seems to be getting better, it seems that this could be due to the hearing loss Probably more related to hearing difficulties and inability to find glasses Currently patient is oriented to self Pleasantly confused Could also be exacerbated by hyponatremia Seems to be close to his baseline Added aricept (7) Major depressive disorder: Code(s): F32.9 - Major depressive disorder, single episode, unspecified Status: Acute Assessment and Plan: Stable Continue home medications at this time (8) HTN (hypertension): Code(s): I10 - Essential (primary) hypertension Status: Acute Assessment and Plan: Current BP is 152/85 Continue home metoprolol 25mg PO BID, Lisinopril 20 PO daily Trend blood pressure adjust therapy as indicated (9) Atrial fibrillation: Code(s): I48.91 - Unspecified atrial fibrillation Status: Acute Assessment and Plan: History of a. fib EKG SR in the 60s Continue home digoxin and metoprolol Heart rate appears controlled Trend heart rate Telemonitor does show some times of afib at a fast rate. (10) Chronic anticoagulation: Code(s): Z79.01 - retirement (current) use of anticoagulants Status: Acute Assessment and Plan: Warfarin 5mg Daily for Afib and DVT/PEs Per G
[2021-09-09] MEDS: PANTOPRAZOLE 40 MG TABLET PO (09:49)
[2021-09-09] MEDS: SODIUM CHLORIDE 1 GM TABLET PO ×2 (09:49→16:05)
[2021-09-09] MEDS: METOPROLOL TARTRATE 50 MG TAB PO ×2 (09:49→20:53)
[2021-09-09] MEDS: PRIMIDONE 50 MG TABLET 200 MG PO ×3 (09:49→16:04)
[2021-09-09] MEDS: FUROSEMIDE 40 MG TABLET PO ×2 (09:49→16:05)
[2021-09-09] MEDS: lisinopriL 20 MG TABLET PO (09:49)
[2021-09-09] MEDS: THERAPEUTIC MULTIVITAMINS/MINERALS TAB (*BKC) 1 TABLET PO (09:49)
[2021-09-09] MEDS: DIGOXIN 250 MCG TABLET PO (09:50)
[2021-09-09] MEDS: TOLNAFTATE 1% POWDER 45 GM BTL 1 APPLIC TOPICAL ×2 (09:51→20:58)
[2021-09-09] MEDS: POTASSIUM CHLORIDE 20 MEQ TABLET 40 MEQ PO (09:56)
[2021-09-09] MEDS: MAGNESIUM SULF 4 GM/WATER100ML 4 GM/100 ML BAG IVPB (09:56)
[2021-09-09 11:47] LABS: Osmolality, Urine 368 mOsm/kg (50-1200)
--- NOTE | 2021-09-09 14:50 | PM.PNNEP ---
Progress Note: A&P Additional Plan 1. Rudy has hyponatremia. He has had intermittent low sodiums back to 2008. S PE and urine osmolality are pending. Cortrosyn stim test is normal. TSH was normal. Urine electrolytes are unremarkable. CT brain was negative. Venous Dopplers were negative. sodium level is wandering in the high 120s. Will continue fluid restriction. Will be on this for the long-term especially if he needs to restart the sertraline. discussed with CHUCK Mascorro. 2. Patient had GI bleeding. Evaluation by Dr. Bishop. Roger noted. 3. The patient has hypertension. Blood pressure is a bit high. He is on metoprolol and lisinopril. 4. Dementia, schizophrenia, OCD. 5. 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 Will make sure there is not a clot there. He is already on anticoagulants though. But it would explain the swelling. Subjective Date/time seen: 09/09/21 14:50 Interval history: Rudy is feeling better today. A little bit more interactive and focused. His [id number]-xl-hpfdnkul Denita, also his cousin, is in the room. We discussed the low sodium levels. Review of Systems Cardiovascular: Cardiovascular: Reports no additional cardiovascular complaints Respiratory: Respiratory: Reports no additional respiratory complaints Gastrointestinal: Gastrointestinal: Reports no additional gastrointestinal complaints Genitourinary: Genitourinary: Reports no additional male genitourinary complaints Exam Narrative: WDWN in NAD skin no rash head ncat lungs clear cor reg no rub abd BS+ nontender and soft ext no edema. Objective Data Vital Signs Vital Signs: Vital Signs - 24 hr 09/08/21 16:00 09/08/21 20:00 09/08/21 21:24 Temperature Pulse Rate 77 97 97 Respiratory Rate Blood Pressure Pulse Oximetry Oxygen Delivery Oxygen Flow Rate 09/08/21 22:00 09/09/21 00:00 09/09/21 04:00 Temperature 37.0 C Pulse Rate 97 87 87 Respiratory Rate 16 Blood Pressure 160/70 H Pulse Oximetry 93 Oxygen Delivery Oxygen Flow Rate 09/09/21 06:00 09/09/21 08:00 09/09/21 09:49 Temperature 36.8 C Pulse Rate 73 86 72 Respiratory Rate 18 Blood Pressure 152/85 H Pulse Oximetry 91 Oxygen Delivery Oxygen Flow Rate 09/09/21 09:50 09/09/21 09:55 09/09/21 12:00 Temperature Pulse Rate 72 85 Respiratory Rate Blood Pressure Pulse Oximetry 90 Oxygen Delivery Nasal Cannula Oxygen Flow Rate 1 Intake/Output Intake/Output: Intake & Output 09/06/21 09/07/21 09/08/21 09/09/21 23:59 23:59 23:59 23:59 Intake Total 2430 2590 2670 400 Output Total 1100 1500 2325 1100 Balance 1330 1090 345 -700 Meds/Results Medications: Active Medications Generic Name Dose Route Start Last Admin Trade Name Freq PRN Reason Stop Dose Admin Acetaminophen 500 mg 09/04/21 08:35 Acetaminophen 500 Mg Tablet PO Q6H PRN Fever Or Pain Digoxin 250 mcg 09/04/21 09:00 09/09/21 09:50 Digoxin 250 Mcg Tablet PO 250 mcg DAILY SIGRID Administration Diphenhydramine HCl 25 mg 09/04/21 08:35 09/04/21 17:47 Diphenhydramine Hcl Cap 25 Mg Capsule PO 25 mg TID PRN Administration Itching Donepezil HCl 5 mg 09/09/21 21:00 Donepezil Hcl 5 Mg Tablet PO HS SIGRID Ergocalciferol 50,000 unit 09/07/21 09:00 09/07/21 08:40 Ergocalciferol 50,000 Unit Capsule PO Not Given Tu@0900 SIGRID Fentanyl Citrate 25 mcg 09/04/21 20:30 Fentanyl Citrate Inj (*Crx) 100 Mcg/2 Ml Vial IV PUSH Q2M PRN Pain Furosemide 40 mg 09/08/21 09:00 09/09/21 09:49 Furosemide 40 Mg Tablet PO 40 mg BID SIGRID Administration Metronidazole 500 mg in 100 mls @ 100 mls/hr 09/04/21 14:00 09/09/21 07:00 Flagyl 500 Mg/Iso Soln 100 Ml IVPB Infused Q8H SIGRID Infusion Ceftriaxone Sodium/Dextrose 1 gm in 50 mls @ 100 mls/hr 09/04/21 16:00 09/08/21 15:46 Rocephin 1 Gm/D5w 50 Ml
[2021-09-09] MEDS: WARFARIN (*PBKC) 10 MG TABLET PO (16:06)
--- NOTE | 2021-09-09 16:58 | WPDGIPROGNO ---
Progress Note: A&P Assessment and Plan (1) Proctitis: Code(s): K62.89 - Other specified diseases of anus and rectum Status: Acute Assessment and Plan: mild proctitis confirmed by biopsy, no signs of bleeding he can go home with canasa supp he already completed abx will follow [place] (2) Rectal bleeding: Code(s): K62.5 - Hemorrhage of anus and rectum Status: Acute Assessment and Plan: resolved, probably from proctitis (3) Gastritis: Code(s): K29.70 - Gastritis, unspecified, without bleeding Status: Acute Assessment and Plan: no signs of bleeding, no H pylori (path report reviewed) ppi daily (4) Urethral stricture: Code(s): N35.919 - Unspecified urethral stricture, male, unspecified site Status: Acute Assessment and Plan: treated with procedure and porter by urology (5) Chronic anticoagulation: Code(s): Z79.01 - residential (current) use of anticoagulants Status: Acute Assessment and Plan: ok to resume by GI standpoint (6) Atrial fibrillation: Code(s): I48.91 - Unspecified atrial fibrillation Status: Acute Subjective Date/time seen: 09/09/21 16:58 Interval history: no new issues Review of Systems Review of Systems: ROS unobtainable: Yes unobtainable due to medical condition Exam Const: General: cooperative, no acute distress, well developed and confusion Nutritional Appearance: well nourished and overweight Orientation/consciousness: oriented to person and confusion HENMT: Head: normal to inspection Ears: hearing grossly normal bilaterally General nose exam: Normal external nose present Teeth and gingiva: poor dentition Eyes: General: appearance normal, both eyes and all related structures Neck: Neck: normal visual inspection and supple Resp: Effort & Inspection: normal respiratory effort Cardio: Rate: regular rate Heart sounds: S1 normal heart sound present and S2 normal heart sound present GI: Inspection: normal to inspection GI Palp: Yes Soft to palpation and No Tenderness to palpation present (GI) Auscultation: normal bowel sounds Urinary Catheter: Urinary Catheter: patent and draining Skin: General skin exam: normal color and no rashes or lesions noted Lesions: no lesions Neuro: General: moves all extremities and confusion Cranial nerves: Yes Equal, round and reactive pupils present Cognition (Neuro): abnormal cognition Speech: normal speech Extrem: General: normal to inspection Psych: Appearance: disheveled Speech and movement: Normal speech and movement present and Clear speech present Thought process: Other thought process findings present (happily confused ) Insight: Poor insight present (Psych) Judgement: Poor judgement present (Psych) Other: he is awake and alert but confused Objective Data Vital Signs Vital Signs: Vital Signs - 24 hr 09/08/21 20:00 09/08/21 21:24 09/08/21 22:00 Temperature 98.6 F Pulse Rate 97 97 97 Respiratory Rate 16 Blood Pressure 160/70 H Pulse Oximetry 93 Oxygen Delivery Oxygen Flow Rate 09/09/21 00:00 09/09/21 04:00 09/09/21 06:00 Temperature 98.2 F Pulse Rate 87 87 73 Respiratory Rate 18 Blood Pressure 152/85 H Pulse Oximetry 91 Oxygen Delivery Oxygen Flow Rate 09/09/21 08:00 09/09/21 09:49 09/09/21 09:50 Temperature Pulse Rate 86 72 72 Respiratory Rate Blood Pressure Pulse Oximetry Oxygen Delivery Oxygen Flow Rate 09/09/21 09:55 09/09/21 12:00 09/09/21 14:00 Temperature 98.5 F Pulse Rate 85 89 Respiratory Rate 19 Blood Pressure 156/78 H Pulse Oximetry 90 93 Oxygen Delivery Nasal Cannula Oxygen Flow Rate 1 Intake/Output Intake/Output: Intake & Output 09/06/21 09/07/21 09/08/21 09/09/21 23:59 23:59 23:59 23:59 Intake Total 2430 2590 2670 600 Output Total 1100 1500 2325 1100 Balance 1330 1090 345 -500 Meds/Results Medications:
[2021-09-09 17:19] LABS: Albumin 3.2 g/dL (3.8-4.8); Alpha 1 Globulin 0.3 g/dL (0.2-0.3); Alpha 2 Globulin 0.7 g/dL (0.5-0.9); Beta 1 Globulin 0.4 g/dL (0.4-0.6); Protein, Total 5.9 g/dL (6.1-8.1)
[2021-09-09 17:33] LABS: Soluble Transferrin Receptor 0.91 mg/L (0.76-1.76)
[2021-09-09] MEDS: TAMSULOSIN HCL 0.4 MG CAPSULE PO (20:53)
[2021-09-09] MEDS: DONEPEZIL HCL 5 MG TABLET PO (20:53)
[2021-09-09] MEDS: MESALAMINE 1,000 MG SUPP.RECT 1000 MG RECTAL (21:44)
[2021-09-10] MEDS: metroNIDAZOLE 500 MG/ISO 100ML 500 MG/100 ML BAG 100 MG IVPB (05:21)
[2021-09-10 05:23] LABS: Osmolality, Urine 389 mOsm/kg (50-1200)
[2021-09-10 06:00] VITALS: BP 183/81; PULSE 88; RESP 18; TEMP 36.1; O2SAT 90
[2021-09-10 06:28] LABS: INR 1.5; Prothrombin Time 17.7 Seconds (11.1-14.7)
[2021-09-10 07:52] LABS: Alanine Aminotransferase 42 U/L (6-50); Albumin Level 3.5 g/dL (3.5-5.1); Alkaline Phosphatase 81 U/L (38-126); Anion Gap 3 mmol/L (8-16); Aspartate Amino Transferase 44 U/L (17-59); Bilirubin,Total 0.6 mg/dL (0.2-1.3); Blood Urea Nitrogen 5 mg/dL (9-20); Calcium 7.8 mg/dL (8.4-10.2); Carbon Dioxide 37 mmol/L (22-30); Chloride 87 mmol/L (98-107); Estimated CRCL calculation 137 ml/min; Estimated Glomerular Filt Rate > 60; Glucose 132 mg/dL (65-110); Potassium 3.6 mmol/L (3.4-5.0); Sodium 127 mmol/L (137-145)
[2021-09-10 08:29] LABS: Basophils Percent Auto 0.2 % (0.2-1.2); Eosinophils Absolute Auto 0.6 K/mm3 (0-0.3); Eosinophils Percent Auto 4.2 % (0-4.4); Hematocrit 39.1 % (42.0-52.0); Hemoglobin 12.9 g/dL (14.0-18.0); Immature Granulocyte Absolute 0.06 K/mm3 (0.00-0.031); Immature Granulocyte Percent A 0.5 % (0-0.5); Lymphocytes Absolute Auto 1.02 K/mm3 (0.9-3.2); Lymphocytes Percent Auto 7.7 % (18.3-44.2); Mean Corpuscular Hemoglobin 28.9 pg (26-34); Mean Corpuscular Volume 87.7 fl (80-100); Mean Platelet Volume 8.6 fl (7.4-10.4); Monocytes Absolute Auto 1.3 K/mm3 (0.1-0.6); Monocytes Percent Auto 9.7 % (2.6-8.5); Neutrophils Absolute Auto 10.3 K/mm3 (1.3-6.7); Neutrophils Percent Auto 77.7 % (45.5-73.1); Platelet Count Result 245 k/mm3 (150-375); Red Blood Count 4.46 M/mm3 (4.6-6.20); Red Cell Distribution Width 13.1 % (11.5-14.5); White Blood Count 13.3 K/mm3 (4.5-10.0)
[2021-09-10 08:40] VITALS: O2SAT 92
[2021-09-10 08:51] VITALS: PULSE 70
[2021-09-10] MEDS: DIGOXIN 250 MCG TABLET PO (08:51)
[2021-09-10] MEDS: PRIMIDONE 50 MG TABLET 200 MG PO ×2 (08:51→12:19)
[2021-09-10] MEDS: METOPROLOL TARTRATE 50 MG TAB PO (08:51)
[2021-09-10] MEDS: PANTOPRAZOLE 40 MG TABLET PO (08:51)
[2021-09-10] MEDS: THERAPEUTIC MULTIVITAMINS/MINERALS TAB (*BKC) 1 TABLET PO (08:51)
[2021-09-10] MEDS: SODIUM CHLORIDE 1 GM TABLET PO (08:51)
[2021-09-10] MEDS: FUROSEMIDE 40 MG TABLET PO (08:52)
[2021-09-10] MEDS: lisinopriL 20 MG TABLET PO (08:52)
[2021-09-10] MEDS: TOLNAFTATE 1% POWDER 45 GM BTL 1 APPLIC TOPICAL (08:54)
--- NOTE | 2021-09-10 09:45 | PM.DS ---
DS: Admitting Diagnosis Discharge Date 09/10/21 0945 Admitting Diagnosis GI bleed/BPH/Urinary retention DS: Discharge Diagnosis Discharge Diagnosis (1) GI bleed: Code(s): K92.2 - Gastrointestinal hemorrhage, unspecified Status: Acute Assessment and Plan: Seems to be lower GI bleed CT scan shows intraluminal hemorrhage H/H remains stable at 12.9/39.1, has decreased a little bit, but is probably from the fluids GI consulted thank you for your recommendation EGD gastritis with no signs of bleeding colonoscopy diverticulosis without perforation, abscess, or bleeding related to proctocolitis Antibiotics continued, per GI for today and tomorrow (2) Hemorrhagic proctocolitis: Code(s): K52.9 - Noninfective gastroenteritis and colitis, unspecified Status: Acute Assessment and Plan: Seems to be resolved Seen on the CT Ceftriaxone/Flagyl on board Trend H/H GI consulted thank you for your help WBC 13.3 Warfarin continued EGD gastritis with no signs of bleeding colonoscopy diverticulosis without perforation, abscess, or bleeding (3) Anemia: Code(s): D64.9 - Anemia, unspecified Status: Acute Assessment and Plan: Reported to have melena, with clots Secondary to GI Bleed H/H stable at this time Anemia labs iron 124, TIBC 277, % saturation 45, transferrin 185, ferritin 110, B12 272, folate 7 Supplement is not indicated at this time Probably related to acute blood loss, but could be multifactorial with the report of melena Transfuse as indicated Trend labs (4) Hyponatremia: Code(s): E87.1 - Hypo-osmolality and hyponatremia Status: Acute Assessment and Plan: Na is 127 this morning again could potentially be from fluid overload Urine studies show Na of 62, Urea 316, creatinine 88.6 FENa score 0.2% and seems to be pre-renal, continue IV fluids Trend Na Adjust therapy as indicated Increase Na 4-6mmol/L per day Nephro consult for further recommendations (5) BPH (benign prostatic hyperplasia): Code(s): N40.0 - Benign prostatic hyperplasia without lower urinary tract symptoms Status: Acute Assessment and Plan: Continue tamsulosin Trend urine output CT indicates urinary distention urology consulted for difficult catheter placement Cystoscopy performed with catheter placement 09/04/21 (6) Alzheimer disease: Code(s): G30.9 - Alzheimer's disease, unspecified; F02.80 - Dementia in other diseases classified elsewhere without behavioral disturbance Status: Acute Assessment and Plan: Seems to be getting better, it seems that this could be due to the hearing loss Probably more related to hearing difficulties and inability to find glasses Currently patient is oriented to self Pleasantly confused Could also be exacerbated by hyponatremia Seems to be close to his baseline Added aricept (7) Major depressive disorder: Code(s): F32.9 - Major depressive disorder, single episode, unspecified Status: Acute Assessment and Plan: Stable Continue home medications at this time (8) HTN (hypertension): Code(s): I10 - Essential (primary) hypertension Status: Acute Assessment and Plan: Current BP is 183/81 Continue home metoprolol 25mg PO BID, Lisinopril 20 PO daily Trend blood pressure adjust therapy as indicated (9) Atrial fibrillation: Code(s): I48.91 - Unspecified atrial fibrillation Status: Acute Assessment and Plan: History of a. fib EKG SR in the 60s Continue home digoxin and metoprolol Heart rate appears controlled Trend heart rate Telemonitor does show some times of afib at a fast rate. (10) Chronic anticoagulation: Code(s): Z79.01 - [facility] (current) use of anticoagulants Status: Acute A
--- NOTE | 2021-09-10 09:45 | P.DS_ITS ---
DS: Admitting Diagnosis Discharge Date 09/10/21 0945 Admitting Diagnosis GI bleed/BPH/Urinary retention DS: Discharge Diagnosis Discharge Diagnosis (1) GI bleed: Code(s): K92.2 - Gastrointestinal hemorrhage, unspecified Status: Acute Assessment and Plan: * Seems to be lower GI bleed * CT scan shows intraluminal hemorrhage * H/H remains stable at 12.9/39.1, has decreased a little bit, but is probably from the fluids * GI consulted thank you for your recommendation * EGD gastritis with no signs of bleeding * colonoscopy diverticulosis without perforation, abscess, or bleeding * related to proctocolitis * Antibiotics continued, per GI for today and tomorrow (2) Hemorrhagic proctocolitis: Code(s): K52.9 - Noninfective gastroenteritis and colitis, unspecified Status: Acute Assessment and Plan: * Seems to be resolved * Seen on the CT * Ceftriaxone/Flagyl on board * Trend H/H * GI consulted thank you for your help * WBC 13.3 * Warfarin continued * EGD gastritis with no signs of bleeding * colonoscopy diverticulosis without perforation, abscess, or bleeding (3) Anemia: Code(s): D64.9 - Anemia, unspecified Status: Acute Assessment and Plan: * Reported to have melena, with clots * Secondary to GI Bleed * H/H stable at this time * Anemia labs iron 124, TIBC 277, % saturation 45, transferrin 185, ferritin 110, B12 272, folate 7 * Supplement is not indicated at this time * Probably related to acute blood loss, but could be multifactorial with the report of melena * Transfuse as indicated * Trend labs (4) Hyponatremia: Code(s): E87.1 - Hypo-osmolality and hyponatremia Status: Acute Assessment and Plan: * Na is 127 this morning again * could potentially be from fluid overload * Urine studies show Na of 62, Urea 316, creatinine 88.6 * FENa score 0.2% and seems to be pre-renal, continue IV fluids * Trend Na * Adjust therapy as indicated * Increase Na 4-6mmol/L per day * Nephro consult for further recommendations (5) BPH (benign prostatic hyperplasia): Code(s): N40.0 - Benign prostatic hyperplasia without lower urinary tract symptoms Status: Acute Assessment and Plan: * Continue tamsulosin * Trend urine output * CT indicates urinary distention * urology consulted for difficult catheter placement * Cystoscopy performed with catheter placement 09/04/21 (6) Alzheimer disease: Code(s): G30.9 - Alzheimer's disease, unspecified; F02.80 - Dementia in other diseases classified elsewhere without behavioral disturbance Status: Acute Assessment and Plan: * Seems to be getting better, it seems that this could be due to the hearing loss * Probably more related to hearing difficulties and inability to find glasses * Currently patient is oriented to self * Pleasantly confused * Could also be exacerbated by hyponatremia * Seems to be close to his baseline * Added aricept (7) Major depressive disorder: Code(s): F32.9 - Major depressive disorder, single episode, unspecified Status: Acute Assessment and Plan: * Stable * Continue home medications at this time (8) HTN (hypertension): Code(s): I10 - Essential (primary) hypertension Status: Acute Assessment and Plan: * Current BP is 183
[2021-09-10] MEDS: FUROSEMIDE INJ 40 MG/4 ML VIAL 20 MG IV PUSH (11:23)
[2021-09-10 11:44] LABS: EDCOVIDSCREEN Negative (Negative)
[2021-09-10 13:36] VITALS: BP 128/87; PULSE 74; RESP 18; TEMP 36.6; O2SAT 91
== END 2021-09-10 13:45 | DRG 378 ==
LOC: ANHED 07:03 → ANH3MEDSUR 11:12
PROVIDERS: Internal Medicine Gastroenterology; Internal Medicine Nephrology; Urology; Admitting Provider Internal Medicine; Emergency Provider Emergency Medicine; PCP Family Medicine; Visit Provider Nurse Practitioner
PROC: 0T7D8ZZ Dilation of Urethra, Via Natural or Artificial Opening Endoscopic (ICD-10-PCS; CPT 52352; principal; 2021-09-04 19:30)
PROC: 0DJ08ZZ Inspection of Upper Intestinal Tract, Via Natural or Artificial Opening Endoscopic (ICD-10-PCS; CPT 43235; principal; 2021-09-07 15:30)
DX: K92.2 Gastrointestinal hemorrhage, unspecified (principal); E87.1 Hypo-osmolality and hyponatremia; E87.2 Acidosis; K52.9 Noninfective gastroenteritis and colitis, unspecified; D64.9 Anemia, unspecified; N40.0 Benign prostatic hyperplasia without lower urinary tract symptoms; G30.9 Alzheimer's disease, unspecified; F02.80 Dementia in other diseases classified elsewhere, unspecified severity, without behavioral disturbance, psychotic disturbance, mood disturbance, and anxiety; F32.9 Major depressive disorder, single episode, unspecified; I10 Essential (primary) hypertension; I48.91 Unspecified atrial fibrillation; Z79.01 Long term (current) use of anticoagulants; R56.9 Unspecified convulsions; Z79.82 Long term (current) use of aspirin; Z79.899 Other long term (current) drug therapy; K21.9 Gastro-esophageal reflux disease without esophagitis; I73.9 Peripheral vascular disease, unspecified; J44.9 Chronic obstructive pulmonary disease, unspecified; Z86.718 Personal history of other venous thrombosis and embolism; R33.9 Retention of urine, unspecified; N35.919 Unspecified urethral stricture, male, unspecified site; K62.89 Other specified diseases of anus and rectum; R82.90 Unspecified abnormal findings in urine
CPT/HCPCS: 36415; 36430; 70450; 71045; 74177; 74420; 74430; 80053; 80185; 81001; 82533; 82570; 82607; 82728; 82746; 82948; 83540; 83550; 83615; 83735; 83880; 83930; 83935; 84100; 84155; 84156; 84165; 84238; 84295; 84300; 84443; 84466; 84540; 85014; 85018; 85025; 85610; 85730; 86850; 86900; 86901; 87040; 87086; 87088; 87426; 88305; 93005; 93306; 93970; 96365; 96367; 96375; 97165; 99285; A9270; C1726; C1758; C1769; C9113; C9803; G0378; J0360; J0696; J0744; J0834; J1940; J2405; J2704; J3010; J3430; J3475; J7030; J7120; P9017; Q9967; U0003; U0005

== ENCOUNTER 2021-12-28 06:27 | Emergency (ER) | payer OTHER, SELFPAY ==
[2021-12-28] VITALS (52 sets, daily range): BP systolic 116–161; BP diastolic 50–99; PULSE 76–100; RESP 15–37; O2SAT 87–100
--- NOTE | 2021-12-28 06:43 | ED.GENADULT ---
HPI - General Adult General Chief complaint: Unspecified <Mandeep Salas MD - Last Filed: 12/28/21 06:46> Stated complaint: hospice - [facility] had no oxygen <Mandeep Salas MD - Last Filed: 12/28/21 06:46> Time Seen by Provider: 12/28/21 06:43 <Mandeep Salas MD - Last Filed: 12/28/21 06:46> History of Present Illness HPI narrative: Patient is a 81-year-old gentleman who presents the emergency department with chief complaint of hypoxia. Patient was seen at the [facility] today for altered mental status and was discharged back to his nursing facility with a hospice consult apparently the patient was discharged on a nonrebreather and the facility where the patient was going did not have the oxygen equipment to be able to provide the high flow of oxygen that he was on. The patient has not yet seen hospice is not currently under hospice care the patient is unable to provide history <Mandeep Salas MD - Last Filed: 12/28/21 06:46> Related Data Home medications: Home Medications Medication Instructions Recorded Confirmed acetaminophen 500 mg tablet 500 mg PO Q6H PRN Fever Or Pain 09/04/21 09/04/21 aspirin 81 mg tablet,delayed 81 mg PO DAILY 09/04/21 09/04/21 release betamethasone dipropionate 0.05 % 1 applic topical DAILY 09/04/21 09/04/21 topical cream cholecalciferol (vitamin D3) 1,250 1,250 mcg PO WEEKLY 09/04/21 09/04/21 mcg (50,000 unit) capsule digoxin 250 mcg (0.25 mg) tablet 250 mcg PO DAILY 09/04/21 09/04/21 diphenhydramine HCl 25 mg capsule 25 mg PO Q6H PRN Itching 09/04/21 09/04/21 (Benadryl) lisinopril 20 mg tablet 20 mg PO DAILY 09/04/21 09/04/21 melatonin 5 mg tablet 5 mg PO HS PRN Sleep 09/04/21 09/04/21 multivitamin with minerals 1 tablet PO DAILY 09/04/21 09/04/21 (Multiple Vitamin-Minerals tablet) phenytoin 125 mg/5 mL oral 6 ml PO BID 09/04/21 09/04/21 suspension phenytoin 125 mg/5 mL oral 6 ml PO TID 09/04/21 09/04/21 suspension primidone 50 mg tablet 200 mg PO TID 09/04/21 09/04/21 sertraline 25 mg tablet 75 mg PO EVERY OTHER DAY 09/04/21 09/04/21 tamsulosin 0.4 mg capsule 0.4 mg PO HS 09/04/21 09/04/21 warfarin 5 mg tablet 5 mg PO DAILY 09/04/21 09/04/21 <Mandeep Salas MD - Last Filed: 12/28/21 06:46> Allergies/adverse reactions: Allergies Allergy/AdvReac Type Severity Reaction Status Date / Time PIPERACILLIN SODIUM Allergy Mild RASH Uncoded 11/12/21 10:20 TAZOBACTAM SODIUM Allergy Mild RASH Uncoded 11/12/21 10:20 <Mandeep Salas MD - Last Filed: 12/28/21 06:46> Review of Systems Review of Systems: Unable to obtain due to altered mental status <Mandeep Salas MD - Last Filed: 12/28/21 06:46> [facility] Past Medical History Medical History: Medical History Alzheimer disease Anemia Anxiety Atrial fibrillation BPH (benign prostatic hyperplasia) Colitis COPD (chronic obstructive pulmonary disease) COVID-19 DVT (deep venous thrombosis) Embolism Gastritis GERD (gastroesophageal reflux disease) HTN (hypertension) Major depressive disorder Osteoporosis Proctitis Pulmonary embolism PVD (peripheral vascular disease) Rectal bleeding Schizo affective schizophrenia Seizure <Mandeep Salas MD - Last Filed: 12/28/21 06:46> Family History Family History: Family History Other Unknown family medical history <Mandeep Salas MD - Last Filed: 12/28/21 06:46> Social History Social History: Social History Social History: Patient is from [facility]. Stephie Cortez appears to be his POA who is a family member. According to the paperwork from the shelter patient is a DNR. Smoking status: Never smoker Alcohol intake: never Substance use: never S
--- NOTE | 2021-12-28 06:58 | PC.NURSE ---
Denita cousin picked [facility].
--- NOTE | 2021-12-28 07:04 | PC.NURSE ---
This RN spoke with Denita RODRIGUEZ @ [phone]. [facility] KATHY Concepcion recommended [facility] as their preferred company for hospice. Denita RODRIGUEZ is ok with us calling in [facility].
--- NOTE | 2021-12-28 07:18 | PC.NURSE ---
Alexa @ [facility] will start a case for this pt. [phone]
--- NOTE | 2021-12-28 08:50 | PC.NURSE ---
Spoke with Myla with hospice. She states she is on her way and will be here in about an hour.
--- NOTE | 2021-12-28 09:05 | PCCCNOTE ---
Patient was brought here prior to arriving at [facility] due to o2 tank running out. Ambulance brought patient here as we were the [facility]. Patient was DC from [facility] and en route to ENR when rerouted here. Per ENR, patient was going to be a hospice consult once placed in ENR. Sherri from [facility] [place] contacted me requesting a referral. CC faxed referral. Plan is to wean patient to 6 liters of oxygen and DC from the ED to ENR on [facility].
--- NOTE | 2021-12-28 10:10 | PC.NURSE ---
Pt restless. in bed This RN made EDP aware. EDP to order ativan for agitation.
[2021-12-28] MEDS: LORazepam INJ (*CRX) 2 MG/ML VIAL 1 MG IV PUSH (10:21)
--- NOTE | 2021-12-28 10:35 | PC.NURSE ---
1m ativan given IM d/t inability to obtain IV access. 3 RNs attempted x2 without success. EDP ok with IM admin vs IV admin.
--- NOTE | 2021-12-28 11:51 | PC.NURSE ---
Patient weaned to 6L NC. Waiting for call from nursing facility to get patient back for admission
--- NOTE | 2021-12-28 12:04 | PC.NURSE ---
Patient cousinJENNIFER, would like a call when patient is headed to the custodial
--- NOTE | 2021-12-28 13:23 | PC.NURSE ---
Report given to PRASAD Briscoe at [facility]. Waiting for EMS arrival
== END 2021-12-28 13:45 | disposition hospice, inpatient (51) ==
PROVIDERS: Emergency Provider Emergency Medicine; PCP Family Medicine
DX: R09.02 Hypoxemia (principal); I48.91 Unspecified atrial fibrillation; G30.9 Alzheimer's disease, unspecified; F02.80 Dementia in other diseases classified elsewhere, unspecified severity, without behavioral disturbance, psychotic disturbance, mood disturbance, and anxiety; I10 Essential (primary) hypertension; I73.9 Peripheral vascular disease, unspecified; N40.0 Benign prostatic hyperplasia without lower urinary tract symptoms; K21.9 Gastro-esophageal reflux disease without esophagitis; M81.0 Age-related osteoporosis without current pathological fracture; F41.9 Anxiety disorder, unspecified; F25.9 Schizoaffective disorder, unspecified; Z86.711 Personal history of pulmonary embolism; Z86.718 Personal history of other venous thrombosis and embolism; Z86.16 Personal history of COVID-19; Z79.82 Long term (current) use of aspirin; Z79.01 Long term (current) use of anticoagulants; Z66 Do not resuscitate
CPT/HCPCS: 96374; 99284; J2060